=== PATIENT | male | born 1945 | race Caucasian/White ===

== ENCOUNTER → 2021-10-28 12:05 | Outpatient (CLI) | payer MEDICARE, SELFPAY ==
[2021-10-28 18:56] LABS: Add Manual Diff / Slide Review NO; Basophils Absolute Auto 100 /uL (0-100); Basophils Percent Auto 0.8 % (0-2); Eosinophils Absolute Auto 0 /uL (0-450); Eosinophils Percent Auto 0.3 % (2-4); Hemoglobin 11.8 g/dL (13.5-17.5); Lymphocytes Absolute Auto 700 /uL (1100-4500); Mean Corpuscular HGB Conc 33.9 % (30-36); Mean Corpuscular Hemoglobin 28.7 PG (26-34); Mean Corpuscular Volume 84.8 fL (80-100); Monocytes Absolute Auto 900 /uL (0-900); Monocytes Percent Auto 8.6 % (3-14); Neutrophils Absolute Auto 9300 /uL (1500-7000); Neutrophils Percent Auto 84.3 % (50-75); Platelet Count 201 X10^3/uL (150-400); Red Blood Cell Count 4.13 X10^6/uL (4.5-5.9); Red Cell Distribution Width 14.5 % (11.6-14.8)
[2021-10-28 19:03] LABS: Alanine Aminotransferase 13 IU/L (<50); Albumin 3.6 g/dL (3.5-5.0); Albumin Globulin Ratio 1.2 (1.0-2.8); Alkaline Phosphatase 116 U/L (38-126); Aspartate Aminotransferase 17 IU/L (17-59); BUN Creatinine Ratio 23.8 (6-22); Bilirubin Total 1.4 mg/dL (0.2-1.3); Blood Urea Nitrogen 30 mg/dL (9-20); Calcium 9.1 mg/dL (8.4-10.2); Carbon Dioxide 23 mmol/L (22-32); Chloride 103 mmol/L (98-107); Estimated Glomerular Filt Rate 59 mL/min (>60); Globulin 3.1 g/dL (1.7-4.1); Glucose 250 mg/dL (80-110); Potassium 4.6 mmol/L (3.4-5.1); Sodium 133 mmol/L (137-145); Total Protein 6.7 g/dL (6.3-8.2); Uric Acid 5.8 mg/dL (3.5-8.5)
[2021-10-28 19:04] LABS: HEMOLYSIS < 15 (0-50)
[2021-10-28 19:07] LABS: NT-proBNP (BNP-Adult 18+) 538 pg/mL (<450)
[2021-10-28 19:19] LABS: Hemoglobin A1C% w Est Avg Glu 8.4 % (4.0-6.0)
[2021-10-28 19:28] LABS: TSH w/ Reflex to FT4 0.55 uIU/mL (0.47-4.68)
[2021-10-28 19:48] LABS: Vitamin B12 347 pg/mL (239-931)
== END ==
PROVIDERS: PCP Physician Assistant; Visit Provider Physician Assistant
DX: I50.32 Chronic diastolic (congestive) heart failure (principal); G62.9 Polyneuropathy, unspecified; E89.0 Postprocedural hypothyroidism; I10 Essential (primary) hypertension; Z13.220 Encounter for screening for lipoid disorders; R05.9 Cough, unspecified; R06.02 Shortness of breath; Z85.51 Personal history of malignant neoplasm of bladder; E78.5 Hyperlipidemia, unspecified; G89.29 Other chronic pain; I25.10 Atherosclerotic heart disease of native coronary artery without angina pectoris; I50.30 Unspecified diastolic (congestive) heart failure; M10.9 Gout, unspecified; M54.9 Dorsalgia, unspecified; R29.6 Repeated falls
CPT/HCPCS: 80053; 82607; 83036; 83880; 84443; 84550; 85025

== ENCOUNTER 2021-12-18 16:41 | Emergency (ER) | payer MEDICARE, SELFPAY ==
[2021-12-18] VITALS (18 sets, daily range): BP systolic 131–175; BP diastolic 58–85; PULSE 52–69; RESP 12–24; TEMP 36.8; O2SAT 94–98; BMI 36.6
--- NOTE | 2021-12-18 17:03 | DI.RAD.S_ITS ---
PROCEDURE: XR CHEST 1V INDICATIONS: lethargic TECHNIQUE: One view of the chest was acquired. COMPARISON: [facility] ([place]), CR, XR CHEST 2V, 10/28/2021, 11:23. FINDINGS: Surgical changes and devices: Cardiac valvular prosthesis is visualized. Lungs and pleura: Mild diffuse interstitial prominence. Patchy bibasilar airspace opacities. No focal consolidations.acromioclavicular opacities involving both costophrenic angles may represent small bilateral pleural effusions. No pneumothorax seen. Mediastinum: Mediastinal contours appear normal. Heart size is mildly enlarged. Bones and chest wall: No suspicious bony lesions. Overlying soft tissues appear unremarkable. IMPRESSION: Borderline cardiomegaly with findings suggestive of early/mild pulmonary edema. Mild patchy bibasilar airspace opacities may represent atelectasis although early airspace disease/pneumonia may have a similar appearance. Recommend follow up chest radiograph 4-6 weeks after treatment to document resolution of findings and/or return to baseline examination. Dictated by: Buck Blevins M.D. on 12/18/2021 at 17:27 Approved by: Buck Blevins M.D. on 12/18/2021 at 17:29
[2021-12-18 17:51] LABS: Alanine Aminotransferase 19 IU/L (<50); Albumin 3.5 g/dL (3.5-5.0); Albumin Globulin Ratio 1.3 (1.0-2.8); Alkaline Phosphatase 108 U/L (38-126); Aspartate Aminotransferase 25 IU/L (17-59); BUN Creatinine Ratio 10.7 (6-22); Bilirubin Total 0.5 mg/dL (0.2-1.3); Blood Urea Nitrogen 13 mg/dL (9-20); Calcium 8.5 mg/dL (8.4-10.2); Carbon Dioxide 20 mmol/L (22-32); Chloride 102 mmol/L (98-107); Creatine Kinase 122 U/L (55-170); Estimated Glomerular Filt Rate > 60 mL/min (>60); Globulin 2.8 g/dL (1.7-4.1); Glucose 264 mg/dL (80-110); HEMOLYSIS < 15 (0-50); Potassium 3.7 mmol/L (3.4-5.1); Sodium 133 mmol/L (137-145); Total Protein 6.3 g/dL (6.3-8.2)
[2021-12-18 17:52] LABS: Add Manual Diff / Slide Review NO; Basophils Absolute Auto 100 /uL (0-100); Basophils Percent Auto 0.9 % (0-2); Eosinophils Absolute Auto 100 /uL (0-450); Eosinophils Percent Auto 1.3 % (2-4); Hematocrit 36.8 % (41-53); Hemoglobin 12.8 g/dL (13.5-17.5); Lymphocytes Absolute Auto 1800 /uL (1100-4500); Lymphocytes Percent Auto 19.3 % (25-40); Mean Corpuscular HGB Conc 34.7 % (30-36); Mean Corpuscular Hemoglobin 29.1 PG (26-34); Monocytes Absolute Auto 600 /uL (0-900); Monocytes Percent Auto 6.8 % (3-14); Neutrophils Absolute Auto 6500 /uL (1500-7000); Neutrophils Percent Auto 71.7 % (50-75); Platelet Count 172 X10^3/uL (150-400); Red Blood Cell Count 4.39 X10^6/uL (4.5-5.9); White Blood Cell Count 9.1 X10^3/uL (4.5-11.0)
[2021-12-18 18:06] LABS: CKMB % Relative Index 1.3 % (1.5-5.0); Creatine Kinase MB 1.61 ng/mL (<2.37)
[2021-12-18 18:13] LABS: Troponin I 0.241 ng/mL (0.01-0.034)
[2021-12-18 18:29] LABS: COVID19 -Nasal RAPID Negative (Negative)
[2021-12-18] MEDS: HEPARIN 5,000 UNIT/ML VIAL 5000 UNIT IV (18:37)
[2021-12-18] MEDS: HEPARIN DRIP 25,000 UNIT/500 ML IV.SOLN 20 UNIT IV (18:38)
[2021-12-18 18:43] LABS: HCO3 VBG 23 mmol/L (23-28); Oxygen Saturation VBG 58 % (70-75); PCO2 VBG 29.7 mmHg (45-50); PO2 VBG 27 mmHg (35-45); Total CO2 VBG 24 mmol/L (24-29)
[2021-12-18 18:47] LABS: D Dimer 365 ng/mL (<230)
[2021-12-18 18:48] LABS: Lactate (Lactic Acid) 1.8 mmol/L (0.7-2.1)
[2021-12-18 18:57] LABS: NT-proBNP (BNP-Adult 18+) 523 pg/mL (<450)
[2021-12-18 19:28] LABS: PTT Partial Thromboplastin Tim 28 SECONDS (26.4-36.2)
--- NOTE | 2021-12-18 19:38 | ED_ITS ---
HPI - General Adult <Carroll Brown - Last Filed: 12/23/21 00:37> General Chief complaint: Diabetic Problem Stated complaint: Lehtargic, brain fog Time Seen by Provider: 12/18/21 18:07 Source: patient, family and EMS Mode of arrival: EMS History of Present Illness HPI narrative: 76-year-old male nonsmoker with extensive medical history including prior pulmonary emboli and DVTs, diabetes, coronary artery disease with prior stents presents by air medical transport for evaluation of fatigue, feeling unwell and elevated blood sugars. He states that over the past 3-4 days he is had a significant change in his ability to tolerate exercise and becomes quite short of breath and fatigued as well as nauseated which improves with rest. He states that prior to this he was able to exercise without much difficulty. He denies any chest pain or unexplained diaphoresis. He states that he and his have been on the road for quite some time and as a consequence they have run out of his medications and he had not been taking his diabetic meds nor anticoagulants among others. He was feeling poorly and foggy and ended up at [facility], records are pending, but he was treated for diabetic emergency with extensive evaluation including but not limited to brain imaging and even lumbar puncture. He states that he was feeling much better and had found a ride back to his home out on the [place] so he left, prior to them being ready. Today based on how he was feeling he presented to the clinic out on [facility] and after evaluation was sent here at his request Related Data Home Medications Medication Instructions Recorded Confirmed gabapentin 300 mg capsule 300 mg PO DAILY 07/06/21 12/18/21 levothyroxine 200 mcg tablet 200 mcg PO DAILY 07/06/21 12/18/21 allopurinol 100 mg tablet 100 mg PO DAILY 10/12/21 12/18/21 amlodipine 5 mg tablet 5 mg PO DAILY 10/12/21 12/18/21 clopidogrel 75 mg tablet 75 mg PO DAILY 10/12/21 12/18/21 duloxetine 30 mg capsule,delayed 30 mg PO BID 10/12/21 12/18/21 release fluticasone propionate 50 1 spray intranasal DAILY 10/12/21 12/18/21 mcg/actuation nasal spray,suspension furosemide 20 mg tablet 20 mg PO DAILY 10/12/21 12/18/21 insulin NPH isoph U-100 human 100 32 unit SUBCUT QAM 10/12/21 12/18/21 unit/mL subcutaneous suspension (Humulin N NPH U-100 Insulin (isophane susp)) latanoprost 0.005 % eye drops 1 drp EYE-BOTH DAILY 10/12/21 12/18/21 omeprazole 20 mg capsule,delayed 20 mg PO DAILY 10/12/21 12/18/21 release rivaroxaban 20 mg tablet (Xarelto) 20 mg PO QPM 10/12/21 12/18/21 triamcinolone acetonide 0.1 % 1 applic topical BID 10/12/21 12/18/21 topical cream insulin NPH isoph U-100 human 100 48 unit SUBCUT BEDTIME 12/18/21 12/18/21 unit/mL subcutaneous cartridge Allergies Allergy/AdvReac Type Severity Reaction Status Date / Time Sulfa (Sulfonamide Allergy Intermediate Hives Verified 12/18/21 18:26 Antibiotics) Review of Systems <Carroll Brown DO - Last Filed: 12/23/21 00:37> Review of Systems Narrative: GENERAL: See HPI HEENT: Denies sinus pain, ear pain, sore throat, difficulty swallowing, dizziness. RESPIRATORY: See HPI CARDIOVASCULAR: Denies chest pain, palpitations, orthopnea, edema, GASTROINTESTINAL: Denies nausea, vomiting, abdominal pain, diarrhea, constipation, melena. : Denies dysuria, frequency, incontinence, hematuria, urinary retention. MUSCULOSKELETAL: denies weakness, joint pain, or bony pain SKIN: Denies rash, skin lesions, or other NEUROLOGIC: Denies weakness, headache, numbness, change in speech, confusion, seizures, incoordination. PSYCHIATRIC: No concerning psychosocial issues. 12 point review of systems is negative except for those stated above Patient History <Carroll Brown DO - Last Filed: 12/23/21 00:37> Medical History Acne Afib EDUARDO (acute kidney injury) Allergies Chicken pox Chronic back pain Coronary artery disease (~2016) Diastolic heart failure (~2016) Glaucoma (~1997) Gout (~1999) Graves disease (~1999) History of kidney cancer Hyperlipidemia (~2016) Kidney stones Measles Mumps Osteoarthritis (~2014) Peripheral neuropathy (~2017) Peroneal DVT (deep venous thrombosis) Pulmonary embolism Rubella Screening for lipid disorders Thyroid cancer Surgical History H/O thyroidectomy History of nephrectomy, right (~2005) Hx of Achilles tendon repair Family History Father Stroke Mother Stroke Sister Cancer Social History Smoking Status: Never smoker Smoking Status: Never smoker alcohol intake frequency: 0-2 drinks per day Substance Use Type: does not use Exam <Carroll Brown DO - Last Filed: 12/23/21 00:37> Narrative Exam Narrative: GENERAL: [76] year old patient appears stated age. Well-developed patient, in mild distress. HEAD: Atraumatic. Normocephalic. EYES: Pupils equal round and reactive. Extraocular motions intact. No scleral icterus. No injection or drainage. ENT: Nose without bleeding, purulent drainage. Throat without erythema, to nsillar hypertrophy or exudate. Airway patent. NECK: Trachea midline. Non tender CARDIOVASCULAR: Regular rate and rhythm without murmurs, gallops, or rubs. RESPIRATORY: Clear to auscultation. Breath sounds equal bilaterally. No wheezes, rales, or rhonchi. GASTROINTESTINAL: Abdomen soft, non-tender, nondistended. EXTREMITIES: No edema or joint tenderness. BACK: Nontender without deformity or crepitance. No flank tenderness. NEURO: AOx3. SKIN: No rash or erythema of visible areas Initial Vital Signs Initial Vital Signs: Vital Signs Temperature 98.3 F 12/18/21 16:50 Pulse Rate 67 12/18/21 16:50 Respiratory Rate 18 12/18/21 16:50 Blood Pressure 171/80 H 12/18/21 16:50 Pulse Oximetry 98 12/18/21 16:50 Oxygen Delivery Method 12/18/21 16:50 <Calos Knutson DO - Last Filed: 12/24/21 22:03> Initial Vital Signs Initial Vital Signs: Vital Signs Temperature 98.3 F 12/18/21 16:50 Pulse Rate 67 12/18/21 16:50 Respiratory Rate 18 12/18/21 16:50 Blood Pressure 171/80 H 12/18/21 16:50 Pulse Oximetry 98 12/18/21 16:50 Oxygen Delivery Method 12/18/21 16:50 <Hakan Hemphill MD - Last Filed: 12/20/21 18:04> Initial Vital Signs Initial Vital Signs: Vital Signs Temperature 98.3 F 12/18/21 16:50 Pulse Rate 67 12/18/21 16:50 Respiratory Rate 18 12/18/21 16:50 Blood Pressure 171/80 H 12/18/21 16:50 Pulse Oximetry 98 12/18/21 16:50 Oxygen Delivery Method 12/18/21 16:50 <Nena Choudhary DO - Last Filed: 12/20/21 17:00> Initial Vital Signs Initial Vital Signs: Vital Signs Temperature 98.3 F 12/18/21 16:50 Pulse Rate 67 12/18/21 16:50 Respiratory Rate 18 12/18/21 16:50 Blood Pressure 171/80 H 12/18/21 16:50 Pulse Oximetry 98 12/18/21 16:50 Oxygen Delivery Method 12/18/21 16:50 Course <Carroll Brown DO - Last Filed: 12/23/21 00:37> Orders Ordered: Discontinued Medications Aspirin (Aspirin 81 Mg Chew Tab) 324 mg PO NOW ONE Stop: 12/18/21 19:47 Last Admin: 12/18/21 20:04 Dose: 324 mg Documented By: JON Aspirin (Aspirin 81 Mg Chew Tab) 324 mg PO DAILY [facility] Atorvastatin Calcium (Atorvastatin 20 Mg Tablet) 80 mg PO NOW ONE Stop: 12/18/21 19:47 Last Admin: 12/18/21 20:04 Dose: 80 mg Documented By: JON Atorvastatin Calcium (Atorvastatin 20 Mg Tablet) 80 mg PO DAILY [facility] Heparin Sodium (Porcine) (Heparin 5,000 Unit/Ml Vial) 5,000 unit IV NOW ONE Stop: 12/18/21 18:15 Last Admin: 12/18/21 18:37 Dose: 5,000 unit Documented By: GUCCI Heparin Sodium/Dextrose (Heparin Drip) 25,000 unit in 500 mls @ 20 mls/hr IV C ONT IZABELLA; Protocol Last Titration: 12/20/21 14:44 Dose: 0 units/hr, 0 mls/hr Documented By: Admin: 12/19/21 18:27 Dose: 1,150 units/hr, 23 mls/hr Documented By: Titration: 12/19/21 18:20 Dose: 1,150 units/hr, 23 mls/hr Documented By: Titration: 12/19/21 15:04 Dose: 1,150 units/hr, 23 mls/hr Documented By: Titration: 12/19/21 09:02 Dose: 1,100 units/hr, 22 mls/hr Documented By: Titration: 12/19/21 00:30 Dose: 1,050 units/hr, 21 mls/hr Documented By: Admin: 12/18/21 18:38 Dose: 1,000 units/hr, 20 mls/hr Documented By: GUCCI Insulin Human Lispro (Insulin Lispro 100 Unit/Ml 3ml Vial) 0 unit SUBCUT [facility]; Protocol Last Admin: 12/20/21 13:59 Dose: 5 unit Documented By: SHANDA Co-signed By: AT Admin: 12/20/21 10:36 Dose: 2 unit Documented By: SHANDA Co-signed By: RAFAELA Admin: 12/19/21 22:37 Dose: 2 unit Documented By: YUE Co-signed By: AT Admin: 12/19/21 17:34 Dose: 4 unit Documented By: SHANDA Co-signed By: TRACY Metoprolol Tartrate (Metoprolol Ir 25 Mg Tablet) 25 mg PO NOW ONE Stop: 12/18/21 19:47 Last Admin: 12/18/21 20:04 Dose: 25 mg Documented By: JON Metoprolol Tartrate (Metoprolol Ir 25 Mg Tablet) 25 mg PO BID [facility] Last Admin: 12/20/21 10:53 Dose: 25 mg Documented By: Admin: 12/19/21 22:37 Dose: Not Given Documented By: Admin: 12/19/21 22:36 Dose: 25 mg Documented By: YUE Consultations Consultation #1: Patient alarm just noted a run of 9 beats of VT Vital Signs Vital signs: Vital Signs - 8 hr 12/20/21 10:55 12/20/21 10:29 12/20/21 10:29 Temperature Pulse Rate 90 54 L Respiratory Rate 22 Blood Pressure 181/80 H 163/77 H Pulse Oximetry 98 Oxygen Delivery Method 12/20/21 10:30 12/20/21 11:00 12/20/21 11:30 Temperature Pulse Rate 55 L 60 57 L Respiratory Rate 16 17 14 Blood Pressure Pulse Oximetry 98 98 98 Oxygen Delivery Method 12/20/21 12:00 12/20/21 12:30 12/20/21 14:01 Temperature 98.4 F Pulse Rate 51 L 48 L 50 L Respiratory Rate 19 22 22 Blood Pressure 163/77 H Pulse Oximetry 95 98 97 Oxygen Delivery Method Room Air Room Air 12/20/21 13:00 12/20/21 13:30 Temperature Pulse Rate 51 L 66 Respiratory Rate 20 19 Blood Pressure Pulse Oximetry 98 97 Oxygen Delivery Method <Calos Knutson DO - Last Filed: 12/24/21 22:03> Orders Ordered: Discontinued Medications Aspirin (Aspirin 81 Mg Chew Tab) 324 mg PO NOW ONE Stop: 12/18/21 19:47 Last Admin: 12/18/21 20:04 Dose: 324 mg Documented By: JON Aspirin (Aspirin 81 Mg Chew Tab) 324 mg PO DAILY [facility] Atorvastatin Calcium (Atorvastatin 20 Mg Tablet) 80 mg PO NOW ONE Stop: 12/18/21 19:47 Last Admin: 12/18/21 20:04 Dose: 80 mg Documented By: JON Atorvastatin Calcium (Atorvastatin 20 Mg Tablet) 80 mg PO DAILY [facility] Heparin Sodium (Porcine) (Heparin 5,000 Unit/Ml Vial) 5,000 unit IV NOW ONE Stop: 12/18/21 18:15 Last Admin: 12/18/21 18:37 Dose: 5,000 unit Documented By: GUCCI Heparin Sodium/Dextrose (Heparin Drip) 25,000 unit in 500 mls @ 20 mls/hr IV CONT IZABELLA; Protocol Last Titration: 12/20/21 14:44 Dose: 0 units/hr, 0 mls/hr Documented By: Admin: 12/19/21 18:27 Dose: 1,150 units/hr, 23 mls/hr Documented By: Titration: 12/19/21 18:20 Dose: 1,150 units/hr, 23 mls/hr Documented By: Titration: 12/19/21 15:04 Dose: 1,150 units/hr, 23 mls/hr Documented By: Titration: 12/19/21 09:02 Dose: 1,100 units/hr, 22 mls/hr Documented By: Titration: 12/19/21 00:30 Dose: 1,050 units/hr, 21 mls/hr Documented By: Admin: 12/18/21 18:38 Dose: 1,000 units/hr, 20 mls/hr Documented By: GUCCI Insulin Human Lispro (Insulin Lispro 100 Unit/Ml 3ml Vial) 0 unit SUBCUT ACHS [facility]; Protocol Last Admin: 12/20/21 13:59 Dose: 5 unit Documented By: SHANDA Co-signed By: AT Admin: 12/20/21 10:36 Dose: 2 unit Documented By: SHANDA Co-signed By: RAFAELA Admin: 12/19/21 22:37 Dose: 2 unit Documented By: YUE Co-signed By: AT Admin: 12/19/21 17:34 Dose: 4 unit Documented By: SHANDA Co-signed By: TRACY Metoprolol Tartrate (Metoprolol Ir 25 Mg Tablet) 25 mg PO NOW ONE Stop: 12/18/21 19:47 Last Admin: 12/18/21 20:04 Dose: 25 mg Documented By: JON Metoprolol Tartrate (Metoprolol Ir 25 Mg Tablet) 25 mg PO BID [facility] Last Admin: 12/20/21 10:53 Dose: 25 mg Documented By: Admin: 12/19/21 22:37 Dose: Not Given Documented By: Admin: 12/19/21 22:36 Dose: 25 mg Documented By: YUE Consultations Consultation #2: Dr. Leda Reagan, cardiology [facility]. Recommends continuing with current course of therapy. Patient unlikely to receive a bed in the next 48 hours but they are happy to see patient. If his enzymes normalize in that time frame he may follow up outpatient for Cardiology treatment. Time: 11:15 Vital Signs Vital signs: Vital Signs - 8 hr 12/20/21 10:55 12/20/21 10:29 12/20/21 10:29 Temperature Pulse Rate 90 54 L Respiratory Rate 22 Blood Pressure 181/80 H 163/77 H Pulse Oximetry 98 Oxygen Delivery Method 12/20/21 10:30 12/20/21 11:00 12/20/21 11:30 Temperature Pulse Rate 55 L 60 57 L Respiratory Rate 16 17 14 Blood Pressure Pulse Oximetry 98 98 98 Oxygen Delivery Method 12/20/21 12:00 12/20/21 12:30 12/20/21 14:01 Temperature 98.4 F Pulse Rate 51 L 48 L 50 L Respiratory Rate 19 22 22 Blood Pressure 163/77 H Pulse Oximetry 95 98 97 Oxygen Delivery Method Room Air Room Air 12/20/21 13:00 12/20/21 13:30 Temperature Pulse Rate 51 L 66 Respiratory Rate 20 19 Blood Pressure Pulse Oximetry 98 97 Oxygen Delivery Method <Hakan Hemphill MD - Last Filed: 12/20/21 18:04> Course Course Narrative: December 19, 2021 at 6:00 p.m.. Sign out from Dr. Knutson, patient on waiting list for transfer. Is stable with non-STEMI. On heparin drip. Troponin is trending downward. Not in DKA. No EKG changes. Echocardiogram in the morning. Daily meds have been ordered. The patient understands need for transfer. Cardiology from [facility] has been contacted and awaiting for bed December 20, 2021 at 7:00 a.m.. Sign out to Dr. Choudhary, patient still waiting for bed assignment. On waiting list. Has been stable. Daily meds are ordered. Patient on heparin drip. No acute EKG changes. Patient not in DKA. Echocardiogram has been ordered for today. Patient and aware for being on wait list Orders Ordered: Discontinued Medications Aspirin (Aspirin 81 Mg Chew Tab) 324 mg PO NOW ONE Stop: 12/18/21 19:47 Last Admin: 12/18/21 20:04 Dose: 324 mg Documented By: JON Aspirin (Aspirin 81 Mg Chew Tab) 324 mg PO DAILY [facility] Atorvastatin Calcium (Atorvastatin 20 Mg Tablet) 80 mg PO NOW ONE Stop: 12/18/21 19:47 Last Admin: 12/18/21 20:04 Dose: 80 mg Documented By: JON Atorvastatin Calcium (Atorvastatin 20 Mg Tablet) 80 mg PO DAILY [facility] Heparin Sodium (Porcine) (Heparin 5,000 Unit/Ml Vial) 5,000 unit IV NOW ONE Stop: 12/18/21 18:15 Last Admin: 12/18/21 18:37 Dose: 5,000 unit Documented By: GUCCI Heparin Sodium/Dextrose (Heparin Drip) 25,000 unit in 500 mls @ 20 mls/hr IV CONT IZABELLA; Protocol Last Titration: 12/20/21 14:44 Dose: 0 units/hr, 0 mls/hr Documented By: Admin: 12/19/21 18:27 Dose: 1,150 units/hr, 23 mls/hr Documented By: Titration: 12/19/21 18:20 Dose: 1,150 units/hr, 23 mls/hr Documented By: Titration: 12/19/21 15:04 Dose: 1,150 units/hr, 23 mls/hr Documented By: Titration: 12/19/21 09:02 Dose: 1,100 units/hr, 22 mls/hr Documented By: Titration: 12/19/21 00:30 Dose: 1,050 units/hr, 21 mls/hr Documented By: Admin: 12/18/21 18:38 Dose: 1,000 units/hr, 20 mls/hr Documented By: GUCCI Insulin Human Lispro (Insulin Lispro 100 Unit/Ml 3ml Vial) 0 unit SUBCUT ACHS [facility]; Protocol Last Admin: 12/20/21 13:59 Dose: 5 unit Documented By: SHANDA Co-signed By: AT Admin: 12/20/21 10:36 Dose: 2 unit Documented By: SHANDA Co-signed By: RAFAELA Admin: 12/19/21 22:37 Dose: 2 unit Documented By: YUE Co-signed By: AT Admin: 12/19/21 17:34 Dose: 4 unit Documented By: SHANDA Co-signed By: TRACY Metoprolol Tartrate (Metoprolol Ir 25 Mg Tablet) 25 mg PO NOW ONE Stop: 12/18/21 19:47 Last Admin: 12/18/21 20:04 Dose: 25 mg Documented By: JON Metoprolol Tartrate (Metoprolol Ir 25 Mg Tablet) 25 mg PO BID [facility] Last Admin: 12/20/21 10:53 Dose: 25 mg Documented By: Admin: 12/19/21 22:37 Dose: Not Given Documented By: Admin: 12/19/21 22:36 Dose: 25 mg Documented By: YUE Reevaluation(s) Reevaluation #1: Introduced myself to patient. December 19, 2021 at 8:00 p.m.. Patient in no distress and understands need for transfer. No active chest pain. at bedside. Time: 20:00 Vital Signs Vital signs: Vital Signs - 8 hr 12/20/21 10:55 12/20/21 10:29 12/20/21 10:29 Temperature Pulse Rate 90 54 L Respiratory Rate 22 Blood Pressure 181/80 H 163/77 H Pulse Oximetry 98 Oxygen Delivery Method 12/20/21 10:30 12/20/21 11:00 12/20/21 11:30 Temperature Pulse Rate 55 L 60 57 L Respiratory Rate 16 17 14 Blood Pressure Pulse Oximetry 98 98 98 Oxygen Delivery Method 12/20/21 12:00 12/20/21 12:30 12/20/21 14:01 Temperature 98.4 F Pulse Rate 51 L 48 L 50 L Respiratory Rate 19 22 22 Blood Pressure 163/77 H Pulse Oximetry 95 98 97 Oxygen Delivery Method Room Air Room Air 12/20/21 13:00 12/20/21 13:30 Temperature Pulse Rate 51 L 66 Respiratory Rate 20 19 Blood Pressure Pulse Oximetry 98 97 Oxygen Delivery Method <Nena Choudhary DO - Last Filed: 12/20/21 17:00> Orders Ordered: Discontinued Medications Aspirin (Aspirin 81 Mg Chew Tab) 324 mg PO NOW ONE Stop: 12/18/21 19:47 Last Admin: 12/18/21 20:04 Dose: 324 mg Documented By: JON Aspirin (Aspirin 81 Mg Chew Tab) 324 mg PO DAILY [facility] Atorvastatin Calcium (Atorvastatin 20 Mg Tablet) 80 mg PO NOW ONE Stop: 12/18/21 19:47 Last Admin: 12/18/21 20:04 Dose: 80 mg Documented By: JON Atorvastatin Calcium (Atorvastatin 20 Mg Tablet) 80 mg PO DAILY [facility] Heparin Sodium (Porcine) (Heparin 5,000 Unit/Ml Vial) 5,000 unit IV NOW ONE Stop: 12/18/21 18:15 Last Admin: 12/18/21 18:37 Dose: 5,000 unit Documented By: GUCCI Heparin Sodium/Dextrose (Heparin Drip) 25,000 unit in 500 mls @ 20 mls/hr IV CONT IZABELLA; Protocol Last Titration: 12/20/21 14:44 Dose: 0 units/hr, 0 mls/hr Documented By: Admin: 12/19/21 18:27 Dose: 1,150 units/hr, 23 mls/hr Documented By: Titration: 12/19/21 18:20 Dose: 1,150 units/hr, 23 mls/hr Documented By: Titration: 12/19/21 15:04 Dose: 1,150 units/hr, 23 mls/hr Documented By: Titration: 12/19/21 09:02 Dose: 1,100 units/hr, 22 mls/hr Documented By: Titration: 12/19/21 00:30 Dose: 1,050 units/hr, 21 mls/hr Documented By: Admin: 12/18/21 18:38 Dose: 1,000 units/hr, 20 mls/hr Documented By: GUCCI Insulin Human Lispro (Insulin Lispro 100 Unit/Ml 3ml Vial) 0 unit SUBCUT ACHS [facility]; Protocol Last Admin: 12/20/21 13:59 Dose: 5 unit Documented By: SHANDA Co-signed By: AT Admin: 12/20/21 10:36 Dose: 2 unit Documented By: SHANDA Co-signed By: RAFAELA Admin: 12/19/21 22:37 Dose: 2 unit Documented By: YUE Co-signed By: AT Admin: 12/19/21 17:34 Dose: 4 unit Documented By: SHANDA Co-signed By: TRACY Metoprolol Tartrate (Metoprolol Ir 25 Mg Tablet) 25 mg PO NOW ONE Stop: 12/18/21 19:47 Last Admin: 12/18/21 20:04 Dose: 25 mg Documented By: JON Metoprolol Tartrate (Metoprolol Ir 25 Mg Tablet) 25 mg PO BID [facility] Last Admin: 12/20/21 10:53 Dose: 25 mg Documented By: Admin: 12/19/21 22:37 Dose: Not Given Documented By: Admin: 12/19/21 22:36 Dose: 25 mg Documented By: YUE Vital Signs Vital signs: Vital Signs - 8 hr 12/20/21 10:55 12/20/21 10:29 12/20/21 10:29 Temperature Pulse Rate 90 54 L Respiratory Rate 22 Blood Pressure 181/80 H 163/77 H Pulse Oximetry 98 Oxygen Delivery Method 12/20/21 10:30 12/20/21 11:00 12/20/21 11:30 Temperature Pulse Rate 55 L 60 57 L Respiratory Rate 16 17 14 Blood Pressure Pulse Oximetry 98 98 98 Oxygen Delivery Method 12/20/21 12:00 12/20/21 12:30 12/20/21 14:01 Temperature 98.4 F Pulse Rate 51 L 48 L 50 L Respiratory Rate 19 22 22 Blood Pressure 163/77 H Pulse Oximetry 95 98 97 Oxygen Delivery Method Room Air Room Air 12/20/21 13:00 12/20/21 13:30 Temperature Pulse Rate 51 L 66 Respiratory Rate 20 19 Blood Pressure Pulse Oximetry 98 97 Oxygen Delivery Method Medical Decision Making <Carroll Kevin, DO - Last Filed: 12/23/21 00:37> Lab Data Result diagrams: 12/20/21 08:30 12/20/21 08:30 Labs: Lab Results 12/18/21 12/18/21 12/18/21 Range/Units 17:20 17:20 17:20 WBC 9.1 (4.5-11.0) X10^3/uL RBC 4.39 L (4.5-5.9) X10^6/uL Hgb 12.8 L (13.5-17.5) g/dL Hct 36.8 L (41-53) % MCV 84.0 (80-100) fL MCH 29.1 (26-34) PG MCHC 34.7 (30-36) % RDW 16.0 H (11.6-14.8) % Plt Count 172 (150-400) X10^3/uL Neut % (Auto) 71.7 (50-75) % Lymph % (Auto) 19.3 L (25-40) % [place] % (Auto) 6.8 (3-14) % Eos % (Auto) 1.3 L (2-4) % Baso % (Auto) 0.9 (0-2) % Neut # (Auto) 6500 (3092-5235) /uL Lymph # (Auto) 1800 (0683-6214) /uL [place] # (Auto) 600 (0-900) /uL Eos # (Auto) 100 (0-450) /uL Baso # (Auto) 100 (0-100) /uL APTT (26.4-36.2) SECONDS D-Dimer (<230) ng/mL VBG pH (7.33-7.43) VBG pCO2 (45-50) mmHg VBG pO2 (35-45) mmHg VBG HCO3 (23-28) mmol/L VBG Total CO2 (24-29) mmol/L VBG O2 Saturation (70-75) % VBG Base Excess (0-4) mmol/L Sodium 133 L (137-145) mmol/L Potassium 3.7 (3.4-5.1) mmol/L Chloride 102 (98-107) mmol/L Carbon Dioxide 20 L (22-32) mmol/L BUN 13 (9-20) mg/dL Creatinine 1.21 (0.66-1.25) mg/dL Estimated GFR > 60 (>60) mL/min BUN/Creatinine Ratio 10.7 (6-22) Glucose 264 H (80-110) mg/dL Lactate 1.8 (0.7-2.1) mmol/L Calcium 8.5 (8.4-10.2) mg/dL Total Bilirubin 0.5 (0.2-1.3) mg/dL AST 25 (17-59) IU/L ALT 19 (<50) IU/L Alkaline Phosphatase 108 (38-126) U/L Total Creatine Kinase 122 (55-170) U/L CK-MB (CK-2) 1.61 (<2.37) ng/mL CK-MB (CK-2) Rel Index 1.3 L (1.5-5.0) % Troponin I 0.241 H* (0.01-0.034) ng/mL NT-Pro-B Natriuret Pep (<450) pg/mL Total Protein 6.3 (6.3-8.2) g/dL Albumin 3.5 (3.5-5.0) g/dL Globulin 2.8 (1.7-4.1) g/dL Albumin/Globulin Ratio 1.3 (1.0-2.8) Urine RBC (0-5/HPF) Urine WBC (0-5/HPF) Ur Squamous Epith Cells (0-5/HPF) Ur Transition Epith Cell (0-5/HPF) Ur Renal Epithelial Cell (0-1/HPF) Amorphous Sediment Urine Bacteria (None) Hyaline Casts (None) Granular Casts (None) Ur Culture Indicated? Ketones 0.20 (<0.27) mmol/L SARS-CoV-2 (PCR) (Negative) 12/18/21 12/18/21 12/18/21 Range/Units 17:20 17:20 17:20 WBC (4.5-11.0) X10^3/uL RBC (4.5-5.9) X10^6/uL Hgb (13.5-17.5) g/dL Hct (41-53) % MCV (80-100) fL MCH (26-34) PG MCHC (30-36) % RDW (11.6-14.8) % Plt Count (150-400) X10^3/uL Neut % (Auto) (50-75) % Lymph % (Auto) (25-40) % [place] % (Auto) (3-14) % Eos % (Auto) (2-4) % Baso % (Auto) (0-2) % Neut # (Auto) (2521-2249) /uL Lymph # (Auto) (4173-4353) /uL [place] # (Auto) (0-900) /uL Eos # (Auto) (0-450) /uL Baso # (Auto) (0-100) /uL APTT 28 (26.4-36.2) SECONDS D-Dimer 365 H (<230) ng/mL VBG pH (7.33-7.43) VBG pCO2 (45-50) mmHg VBG pO2 (35-45) mmHg VBG HCO3 (23-28) mmol/L VBG Total CO2 (24-29) mmol/L VBG O2 Saturation (70-75) % VBG Base Excess (0-4) mmol/L Sodium (137-145) mmol/L Potassium (3.4-5.1) mmol/L Chloride (98-107) mmol/L Carbon Dioxide (22-32) mmol/L BUN (9-20) mg/dL Creatinine (0.66-1.25) mg/dL Estimated GFR (>60) mL/min BUN/Creatinine Ratio (6-22) Glucose (80-110) mg/dL Lactate (0.7-2.1) mmol/L Calcium (8.4-10.2) mg/dL Total Bilirubin (0.2-1.3) mg/dL AST (17-59) IU/L ALT (<50) IU/L Alkaline Phosphatase (38-126) U/L Total Creatine Kinase (55-170) U/L CK-MB (CK-2) (<2.37) ng/mL CK-MB (CK-2) Rel Index (1.5-5.0) % Troponin I (0.01-0.034) ng/mL NT-Pro-B Natriuret Pep 523 H (<450) pg/mL Total Protein (6.3-8.2) g/dL Albumin (3.5-5.0) g/dL Globulin (1.7-4.1) g/dL Albumin/Globulin Ratio (1.0-2.8) Urine RBC (0-5/HPF) Urine WBC (0-5/HPF) Ur Squamous Epith Cells (0-5/HPF) Ur Transition Epith Cell (0-5/HPF) Ur Renal Epithelial Cell (0-1/HPF) Amorphous Sediment Urine Bacteria (None) Hyaline Casts (None) Granular Casts (None) Ur Culture Indicated? Ketones (<0.27) mmol/L SARS-CoV-2 (PCR) (Negative) 12/18/21 12/18/21 12/18/21 Range/Units 17:55 18:35 19:40 WBC (4.5-11.0) X10^3/uL RBC (4.5-5.9) X10^6/uL Hgb (13.5-17.5) g/dL Hct (41-53) % MCV (80-100) fL MCH (26-34) PG MCHC (30-36) % RDW (11.6-14.8) % Plt Count (150-400) X10^3/uL Neut % (Auto) (50-75) % Lymph % (Auto) (25-40) % [place] % (Auto) (3-14) % Eos % (Auto) (2-4) % Baso % (Auto) (0-2) % Neut # (Auto) (7064-2893) /uL Lymph # (Auto) (2726-5284) /uL [place] # (Auto) (0-900) /uL Eos # (Auto) (0-450) /uL Baso # (Auto) (0-100) /uL APTT (26.4-36.2) SECONDS D-Dimer (<230) ng/mL VBG pH 7.50 H (7.33-7.43) VBG pCO2 29.7 L (45-50) mmHg VBG pO2 27 L (35-45) mmHg VBG HCO3 23 (23-28) mmol/L VBG Total CO2 24 (24-29) mmol/L VBG O2 Saturation 58 L (70-75) % VBG Base Excess 0.0 (0-4) mmol/L Sodium (137-145) mmol/L Potassium (3.4-5.1) mmol/L Chloride (98-107) mmol/L Carbon Dioxide (22-32) mmol/L BUN (9-20) mg/dL Creatinine (0.66-1.25) mg/dL Estimated GFR (>60) mL/min BUN/Creatinine Ratio (6-22) Glucose (80-110) mg/dL Lactate (0.7-2.1) mmol/L Calcium (8.4-10.2) mg/dL Total Bilirubin (0.2-1.3) mg/dL AST (17-59) IU/L ALT (<50) IU/L Alkaline Phosphatase (38-126) U/L Total Creatine Kinase (55-170) U/L CK-MB (CK-2) (<2.37) ng/mL CK-MB (CK-2) Rel Index (1.5-5.0) % Troponin I (0.01-0.034) ng/mL NT-Pro-B Natriuret Pep (<450) pg/mL Total Protein (6.3-8.2) g/dL Albumin (3.5-5.0) g/dL Globulin (1.7-4.1) g/dL Albumin/Globulin Ratio (1.0-2.8) Urine RBC 1-5/hpf (0-5/HPF) Urine WBC 1-5/hpf (0-5/HPF) Ur Squamous Epith Cells 1-5 /hpf (0-5/HPF) Ur Transition Epith Cell 0-1/hpf (0-5/HPF) Ur Renal Epithelial Cell 0-1/hpf (0-1/HPF) Amorphous Sediment 1+ Urine Bacteria Occasional (0-1) (None) Hyaline Casts 5-10/lpf (None) Granular Casts 1-5/lpf (None) Ur Culture Indicated? Cult not indicated Ketones (<0.27) mmol/L SARS-CoV-2 (PCR) Negative (Negative) 12/18/21 12/19/21 12/19/21 Range/Units 20:35 00:20 03:51 WBC (4.5-11.0) X10^3/uL RBC (4.5-5.9) X10^6/uL Hgb (13.5-17.5) g/dL Hct (41-53) % MCV (80-100) fL MCH (26-34) PG MCHC (30-36) % RDW (11.6-14.8) % Plt Count (150-400) X10^3/uL Neut % (Auto) (50-75) % Lymph % (Auto) (25-40) % [place] % (Auto) (3-14) % Eos % (Auto) (2-4) % Baso % (Auto) (0-2) % Neut # (Auto) (2725-9772) /uL Lymph # (Auto) (5405-5814) /uL [place] # (Auto) (0-900) /uL Eos # (Auto) (0-450) /uL Baso # (Auto) (0-100) /uL APTT 47 H D (26.4-36.2) SECONDS D-Dimer (<230) ng/mL VBG pH (7.33-7.43) VBG pCO2 (45-50) mmHg VBG pO2 (35-45) mmHg VBG HCO3 (23-28) mmol/L VBG Total CO2 (24-29) mmol/L VBG O2 Saturation (70-75) % VBG Base Excess (0-4) mmol/L Sodium (137-145) mmol/L Potassium (3.4-5.1) mmol/L Chloride (98-107) mmol/L Carbon Dioxide (22-32) mmol/L BUN (9-20) mg/dL Creatinine (0.66-1.25) mg/dL Estimated GFR (>60) mL/min BUN/Creatinine Ratio (6-22) Glucose (80-110) mg/dL Lactate (0.7-2.1) mmol/L Calcium (8.4-10.2) mg/dL Total Bilirubin (0.2-1.3) mg/dL AST (17-59) IU/L ALT (<50) IU/L Alkaline Phosphatase (38-126) U/L Total Creatine Kinase 109 119 (55-170) U/L CK-MB (CK-2) 1.45 1.55 (<2.37) ng/mL CK-MB (CK-2) Rel Index 1.3 L 1.3 L (1.5-5.0) % Troponin I 0.227 H* 0.247 H* (0.01-0.034) ng/mL NT-Pro-B Natriuret Pep (<450) pg/mL Total Protein (6.3-8.2) g/dL Albumin (3.5-5.0) g/dL Globulin (1.7-4.1) g/dL Albumin/Globulin Ratio (1.0-2.8) Urine RBC (0-5/HPF) Urine WBC (0-5/HPF) Ur Squamous Epith Cells (0-5/HPF) Ur Transition Epith Cell (0-5/HPF) Ur Renal Epithelial Cell (0-1/HPF) Amorphous Sediment Urine Bacteria (None) Hyaline Casts (None) Granular Casts (None) Ur Culture Indicated? Ketones (<0.27) mmol/L SARS-CoV-2 (PCR) (Negative) 12/19/21 12/19/21 12/19/21 Range/Units 06:15 09:55 09:55 WBC (4.5-11.0) X10^3/uL RBC (4.5-5.9) X10^6/uL Hgb 11.7 L (13.5-17.5) g/dL Hct 33.5 L (41-53) % MCV (80-100) fL MCH (26-34) PG MCHC (30-36) % RDW (11.6-14.8) % Plt Count (150-400) X10^3/uL Neut % (Auto) (50-75) % Lymph % (Auto) (25-40) % [place] % (Auto) (3-14) % Eos % (Auto) (2-4) % Baso % (Auto) (0-2) % Neut # (Auto) (1074-7476) /uL Lymph # (Auto) (8118-5062) /uL [place] # (Auto) (0-900) /uL Eos # (Auto) (0-450) /uL Baso # (Auto) (0-100) /uL APTT 47 H (26.4-36.2) SECONDS D-Dimer (<230) ng/mL VBG pH (7.33-7.43) VBG pCO2 (45-50) mmHg VBG pO2 (35-45) mmHg VBG HCO3 (23-28) mmol/L VBG Total CO2 (24-29) mmol/L VBG O2 Saturation (70-75) % VBG Base Excess (0-4) mmol/L Sodium 134 L (137-145) mmol/L Potassium 3.9 (3.4-5.1) mmol/L Chloride 103 (98-107) mmol/L Carbon Dioxide 23 (22-32) mmol/L BUN 13 (9-20) mg/dL Creatinine 1.27 H (0.66-1.25) mg/dL Estimated GFR 59 L (>60) mL/min BUN/Creatinine Ratio 10.2 (6-22) Glucose 282 H (80-110) mg/dL Lactate (0.7-2.1) mmol/L Calcium 8.0 L (8.4-10.2) mg/dL Total Bilirubin (0.2-1.3) mg/dL AST (17-59) IU/L ALT (<50) IU/L Alkaline Phosphatase (38-126) U/L Total Creatine Kinase (55-170) U/L CK-MB (CK-2) (<2.37) ng/mL CK-MB (CK-2) Rel Index (1.5-5.0) % Troponin I 0.185 H* (0.01-0.034) ng/mL NT-Pro-B Natriuret Pep (<450) pg/mL Total Protein (6.3-8.2) g/dL Albumin (3.5-5.0) g/dL Globulin (1.7-4.1) g/dL Albumin/Globulin Ratio (1.0-2.8) Urine RBC (0-5/HPF) Urine WBC (0-5/HPF) Ur Squamous Epith Cells (0-5/HPF) Ur Transition Epith Cell (0-5/HPF) Ur Renal Epithelial Cell (0-1/HPF) Amorphous Sediment Urine Bacteria (None) Hyaline Casts (None) Granular Casts (None) Ur Culture Indicated? Ketones (<0.27) mmol/L SARS-CoV-2 (PCR) (Negative) 12/19/21 12/19/21 12/19/21 Range/Units 13:15 19:15 19:47 WBC (4.5-11.0) X10^3/uL RBC (4.5-5.9) X10^6/uL Hgb (13.5-17.5) g/dL Hct (41-53) % MCV (80-100) fL MCH (26-34) PG MCHC (30-36) % RDW (11.6-14.8) % Plt Count (150-400) X10^3/uL Neut % (Auto) (50-75) % Lymph % (Auto) (25-40) % [place] % (Auto) (3-14) % Eos % (Auto) (2-4) % Baso % (Auto) (0-2) % Neut # (Auto) (0968-6862) /uL Lymph # (Auto) (2605-9313) /uL [place] # (Auto) (0-900) /uL Eos # (Auto) (0-450) /uL Baso # (Auto) (0-100) /uL APTT 46 H 42 H (26.4-36.2) SECONDS D-Dimer (<230) ng/mL VBG pH (7.33-7.43) VBG pCO2 (45-50) mmHg VBG pO2 (35-45) mmHg VBG HCO3 (23-28) mmol/L VBG Total CO2 (24-29) mmol/L VBG O2 Saturation (70-75) % VBG Base Excess (0-4) mmol/L Sodium (137-145) mmol/L Potassium (3.4-5.1) mmol/L Chloride (98-107) mmol/L Carbon Dioxide (22-32) mmol/L BUN (9-20) mg/dL Creatinine (0.66-1.25) mg/dL Estimated GFR (>60) mL/min BUN/Creatinine Ratio (6-22) Glucose (80-110) mg/dL Lactate (0.7-2.1) mmol/L Calcium (8.4-10.2) mg/dL Total Bilirubin (0.2-1.3) mg/dL AST (17-59) IU/L ALT (<50) IU/L Alkaline Phosphatase (38-126) U/L Total Creatine Kinase (55-170) U/L CK-MB (CK-2) (<2.37) ng/mL CK-MB (CK-2) Rel Index (1.5-5.0) % Troponin I 0.173 H* (0.01-0.034) ng/mL NT-Pro-B Natriuret Pep (<450) pg/mL Total Protein (6.3-8.2) g/dL Albumin (3.5-5.0) g/dL Globulin (1.7-4.1) g/dL Albumin/Globulin Ratio (1.0-2.8) Urine RBC (0-5/HPF) Urine WBC (0-5/HPF) Ur Squamous Epith Cells (0-5/HPF) Ur Transition Epith Cell (0-5/HPF) Ur Renal Epithelial Cell (0-1/HPF) Amorphous Sediment Urine Bacteria (None) Hyaline Casts (None) Granular Casts (None) Ur Culture Indicated? Ketones (<0.27) mmol/L SARS-CoV-2 (PCR) (Negative) 12/20/21 12/20/21 12/20/21 Range/Units 08:30 08:30 09:05 WBC 8.1 (4.5-11.0) X10^3/uL RBC 4.61 (4.5-5.9) X10^6/uL Hgb 13.4 L (13.5-17.5) g/dL Hct 39.1 L (41-53) % MCV 84.8 (80-100) fL MCH 29.1 (26-34) PG MCHC 34.3 (30-36) % RDW 15.6 H (11.6-14.8) % Plt Count 168 (150-400) X10^3/uL Neut % (Auto) 68.8 (50-75) % Lymph % (Auto) 19.3 L (25-40) % [place] % (Auto) 7.4 (3-14) % Eos % (Auto) 3.7 (2-4) % Baso % (Auto) 0.8 (0-2) % Neut # (Auto) 5600 (9633-7202) /uL Lymph # (Auto) 1600 (4783-6660) /uL [place] # (Auto) 600 (0-900) /uL Eos # (Auto) 300 (0-450) /uL Baso # (Auto) 100 (0-100) /uL APTT 51 H D (26.4-36.2) SECONDS D-Dimer (<230) ng/mL VBG pH (7.33-7.43) VBG pCO2 (45-50) mmHg VBG pO2 (35-45) mmHg VBG HCO3 (23-28) mmol/L VBG Total CO2 (24-29) mmol/L VBG O2 Saturation (70-75) % VBG Base Excess (0-4) mmol/L Sodium 135 L (137-145) mmol/L Potassium 4.3 (3.4-5.1) mmol/L Chloride 104 (98-107) mmol/L Carbon Dioxide 24 (22-32) mmol/L BUN 12 (9-20) mg/dL Creatinine 1.18 (0.66-1.25) mg/dL Estimated GFR > 60 (>60) mL/min BUN/Creatinine Ratio 10.2 (6-22) Glucose 239 H (80-110) mg/dL Lactate (0.7-2.1) mmol/L Calcium 8.5 (8.4-10.2) mg/dL Total Bilirubin 1.1 (0.2-1.3) mg/dL AST 46 (17-59) IU/L ALT 26 (<50) IU/L Alkaline Phosphatase 113 (38-126) U/L Total Creatine Kinase (55-170) U/L CK-MB (CK-2) (<2.37) ng/mL CK-MB (CK-2) Rel Index (1.5-5.0) % Troponin I (0.01-0.034) ng/mL NT-Pro-B Natriuret Pep (<450) pg/mL Total Protein 7.4 (6.3-8.2) g/dL Albumin 4.0 (3.5-5.0) g/dL Globulin 3.4 (1.7-4.1) g/dL Albumin/Globulin Ratio 1.2 (1.0-2.8) Urine RBC (0-5/HPF) Urine WBC (0-5/HPF) Ur Squamous Epith Cells (0-5/HPF) Ur Transition Epith Cell (0-5/HPF) Ur Renal Epithelial Cell (0-1/HPF) Amorphous Sediment Urine Bacteria (None) Hyaline Casts (None) Granular Casts (None) Ur Culture Indicated? Ketones (<0.27) mmol/L SARS-CoV-2 (PCR) (Negative) Point of Care Testing Glucose POC 403 Urine Dip Bedside Urine Glucose 1000 mg/dl Bedside Urine Bilirubin - Negative Bedside Urine Ketone - Negative Urine Specific [place] 1.030 Bedside Urine Occult Blood + Bedside Urine pH 5.5 Bedside Urine Protein +++ 300 Bedside Urine Urobilinogen - Negative Bedside Urine Nitrite - Negative Bedside Urine Leukocytes - Negative Esterase Point of care testing: Point of Care Testing Glucose POC 403 Urine Dip Bedside Urine Glucose 1000 mg/dl Bedside Urine Bilirubin - Negative Bedside Urine Ketone - Negative Urine Specific [place] 1.030 Bedside Urine Occult Blood + Bedside Urine pH 5.5 Bedside Urine Protein +++ 300 Bedside Urine Urobilinogen - Negative Bedside Urine Nitrite - Negative Bedside Urine Leukocytes - Negative Esterase Imaging Data Chest x-ray: Radiologist's Impression: [address] [id number] XRay Report Signed Patient: Ted Baldwin MR#: [id number] : 1945 Acct:[id number] Age/Sex: 76 / M Date of Service: 12/18/21 Loc: ED Accession Number: [id number] ?? Procedure: XR chest 1V Ordering Provider: Calos Knutson D.O. PROCEDURE:? XR CHEST 1V ? INDICATIONS:? lethargic ? TECHNIQUE:? One view of the chest was acquired.? ? COMPAR[place]:? [facility] [place], 10/28/2021, 11:23. ? FINDINGS:? ? Surgical changes and devices:? Cardiac valvular prosthesis is visualized. ? Lungs and pleura:? Mild diffuse interstitial prominence.? Patchy bibasilar airspace opacities.? No focal consolidations.acromioclavicular opacities involving both costophrenic angles may represent small bilateral pleural effusions.? No pneumothorax seen. ? Mediastinum:? Mediastinal contours appear normal.? Heart size is mildly enlarged.? ? Bones and chest wall:? No suspicious bony lesions.? Overlying soft tissues ap pear unremarkable.? ? IMPRESSION:? Borderline cardiomegaly with findings suggestive of early/mild pu lmonary edema.? Mild patchy bibasilar airspace opacities may represent atelectasis although early airspace disease/pneumonia may have a similar appearance. ? ? Recommend follow up chest radiograph 4-6 weeks after treatment to document resolution of findings and/or return to baseline examination. ? ? Dictated by: Buck Blevins M.D. on 12/18/2021 at 17:27 ? ? Approved by: Buck Blevins M.D. on 12/18/2021 at 17:29 ? ECG Data Interpretation: [1704] EKG is normal sinus rhythm rate [62] and free of any signs of ischemia or ectopy. No ST segmental elevation or depression. No T wave inversions MDM Narrative Medical decision making narrative: Patient continues to rest comfortably, no pain, he had of brief, 9 run beat of V-tach hours ago without symptoms and no recurrence. Troponins remained stable and he is continued on heparin drip. 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 <Calos Knutson, DO - Last Filed: 12/24/21 22:03> Lab Data Labs: Lab Results 12/18/21 12/18/21 12/18/21 Range/Units 17:20 17:20 17:20 WBC 9.1 (4.5-11.0) X10^3/uL RBC 4.39 L (4.5-5.9) X10^6/uL Hgb 12.8 L (13.5-17.5) g/dL Hct 36.8 L (41-53) % MCV 84.0 (80-100) fL MCH 29.1 (26-34) PG MCHC 34.7 (30-36) % RDW 16.0 H (11.6-14.8) % Plt Count 172 (150-400) X10^3/uL Neut % (Auto) 71.7 (50-75) % Lymph % (Auto) 19.3 L (25-40) % [place] % (Auto) 6.8 (3-14) % Eos % (Auto) 1.3 L (2-4) % Baso % (Auto) 0.9 (0-2) % Neut # (Auto) 6500 (5286-3324) /uL Lymph # (Auto) 1800 (7261-0549) /uL [place] # (Auto) 600 (0-900) /uL Eos # (Auto) 100 (0-450) /uL Baso # (Auto) 100 (0-100) /uL APTT (26.4-36.2) SECONDS D-Dimer (<230) ng/mL VBG pH (7.33-7.43) VBG pCO2 (45-50) mmHg VBG pO2 (35-45) mmHg VBG HCO3 (23-28) mmol/L VBG Total CO2 (24-29) mmol/L VBG O2 Saturation (70-75) % VBG Base Excess (0-4) mmol/L Sodium 133 L (137-145) mmol/L Potassium 3.7 (3.4-5.1) mmol/L Chloride 102 (98-107) mmol/L Carbon Dioxide 20 L (22-32) mmol/L BUN 13 (9-20) mg/dL Creatinine 1.21 (0.66-1.25) mg/dL Estimated GFR > 60 (>60) mL/min BUN/Creatinine Ratio 10.7 (6-22) Glucose 264 H (80-110) mg/dL Lactate 1.8 (0.7-2.1) mmol/L Calcium 8.5 (8.4-10.2) mg/dL Total Bilirubin 0.5 (0.2-1.3) mg/dL AST 25 (17-59) IU/L ALT 19 (<50) IU/L Alkaline Phosphatase 108 (38-126) U/L Total Creatine Kinase 122 (55-170) U/L CK-MB (CK-2) 1.61 (<2.37) ng/mL CK-MB (CK-2) Rel Index 1.3 L (1.5-5.0) % Troponin I 0.241 H* (0.01-0.034) ng/mL NT-Pro-B Natriuret Pep (<450) pg/mL Total Protein 6.3 (6.3-8.2) g/dL Albumin 3.5 (3.5-5.0) g/dL Globulin 2.8 (1.7-4.1) g/dL Albumin/Globulin Ratio 1.3 (1.0-2.8) Urine RBC (0-5/HPF) Urine WBC (0-5/HPF) Ur Squamous Epith Cells (0-5/HPF) Ur Transition Epith Cell (0-5/HPF) Ur Renal Epithelial Cell (0-1/HPF) Amorphous Sediment Urine Bacteria (None) Hyaline Casts (None) Granular Casts (None) Ur Culture Indicated? Ketones 0.20 (<0.27) mmol/L SARS-CoV-2 (PCR) (Negative) 12/18/21 12/18/21 12/18/21 Range/Units 17:20 17:20 17:20 WBC (4.5-11.0) X10^3/uL RBC (4.5-5.9) X10^6/uL Hgb (13.5-17.5) g/dL Hct (41-53) % MCV (80-100) fL MCH (26-34) PG MCHC (30-36) % RDW (11.6-14.8) % Plt Count (150-400) X10^3/uL Neut % (Auto) (50-75) % Lymph % (Auto) (25-40) % [place] % (Auto) (3-14) % Eos % (Auto) (2-4) % Baso % (Auto) (0-2) % Neut # (Auto) (5426-5427) /uL Lymph # (Auto) (5787-6836) /uL [place] # (Auto) (0-900) /uL Eos # (Auto) (0-450) /uL Baso # (Auto) (0-100) /uL APTT 28 (26.4-36.2) SECONDS D-Dimer 365 H (<230) ng/mL VBG pH (7.33-7.43) VBG pCO2 (45-50) mmHg VBG pO2 (35-45) mmHg VBG HCO3 (23-28) mmol/L VBG Total CO2 (24-29) mmol/L VBG O2 Saturation (70-75) % VBG Base Excess (0-4) mmol/L Sodium (137-145) mmol/L Potassium (3.4-5.1) mmol/L Chloride (98-107) mmol/L Carbon Dioxide (22-32) mmol/L BUN (9-20) mg/dL Creatinine (0.66-1.25) mg/dL Estimated GFR (>60) mL/min BUN/Creatinine Ratio (6-22) Glucose (80-110) mg/dL Lactate (0.7-2.1) mmol/L Calcium (8.4-10.2) mg/dL Total Bilirubin (0.2-1.3) mg/dL AST (17-59) IU/L ALT (<50) IU/L Alkaline Phosphatase (38-126) U/L Total Creatine Kinase (55-170) U/L CK-MB (CK-2) (<2.37) ng/mL CK-MB (CK-2) Rel Index (1.5-5.0) % Troponin I (0.01-0.034) ng/mL NT-Pro-B Natriuret Pep 523 H (<450) pg/mL Total Protein (6.3-8.2) g/dL Albumin (3.5-5.0) g/dL Globulin (1.7-4.1) g/dL Albumin/Globulin Ratio (1.0-2.8) Urine RBC (0-5/HPF) Urine WBC (0-5/HPF) Ur Squamous Epith Cells (0-5/HPF) Ur Transition Epith Cell (0-5/HPF) Ur Renal Epithelial Cell (0-1/HPF) Amorphous Sediment Urine Bacteria (None) Hyaline Casts (None) Granular Casts (None) Ur Culture Indicated? Ketones (<0.27) mmol/L SARS-CoV-2 (PCR) (Negative) 12/18/21 12/18/21 12/18/21 Range/Units 17:55 18:35 19:40 WBC (4.5-11.0) X10^3/uL RBC (4.5-5.9) X10^6/uL Hgb (13.5-17.5) g/dL Hct (41-53) % MCV (80-100) fL MCH (26-34) PG MCHC (30-36) % RDW (11.6-14.8) % Plt Count (150-400) X10^3/uL Neut % (Auto) (50-75) % Lymph % (Auto) (25-40) % [place] % (Auto) (3-14) % Eos % (Auto) (2-4) % Baso % (Auto) (0-2) % Neut # (Auto) (5540-1037) /uL Lymph # (Auto) (6340-5682) /uL [place] # (Auto) (0-900) /uL Eos # (Auto) (0-450) /uL Baso # (Auto) (0-100) /uL APTT (26.4-36.2) SECONDS D-Dimer (<230) ng/mL VBG pH 7.50 H (7.33-7.43) VBG pCO2 29.7 L (45-50) mmHg VBG pO2 27 L (35-45) mmHg VBG HCO3 23 (23-28) mmol/L VBG Total CO2 24 (24-29) mmol/L VBG O2 Saturation 58 L (70-75) % VBG Base Excess 0.0 (0-4) mmol/L Sodium (137-145) mmol/L Potassium (3.4-5.1) mmol/L Chloride (98-107) mmol/L Carbon Dioxide (22-32) mmol/L BUN (9-20) mg/dL Creatinine (0.66-1.25) mg/dL Estimated GFR (>60) mL/min BUN/Creatinine Ratio (6-22) Glucose (80-110) mg/dL Lactate (0.7-2.1) mmol/L Calcium (8.4-10.2) mg/dL Total Bilirubin (0.2-1.3) mg/dL AST (17-59) IU/L ALT (<50) IU/L Alkaline Phosphatase (38-126) U/L Total Creatine Kinase (55-170) U/L CK-MB (CK-2) (<2.37) ng/mL CK-MB (CK-2) Rel Index (1.5-5.0) % Troponin I (0.01-0.034) ng/mL NT-Pro-B Natriuret Pep (<450) pg/mL Total Protein (6.3-8.2) g/dL Albumin (3.5-5.0) g/dL Globulin (1.7-4.1) g/dL Albumin/Globulin Ratio (1.0-2.8) Urine RBC 1-5/hpf (0-5/HPF) Urine WBC 1-5/hpf (0-5/HPF) Ur Squamous Epith Cells 1-5 /hpf (0-5/HPF) Ur Transition Epith Cell 0-1/hpf (0-5/HPF) Ur Renal Epithelial Cell 0-1/hpf (0-1/HPF) Amorphous Sediment 1+ Urine Bacteria Occasional (0-1) (None) Hyaline Casts 5-10/lpf (None) Granular Casts 1-5/lpf (None) Ur Culture Indicated? Cult not indicated Ketones (<0.27) mmol/L SARS-CoV-2 (PCR) Negative (Negative) 12/18/21 12/19/21 12/19/21 Range/Units 20:35 00:20 03:51 WBC (4.5-11.0) X10^3/uL RBC (4.5-5.9) X10^6/uL Hgb (13.5-17.5) g/dL Hct (41-53) % MCV (80-100) fL MCH (26-34) PG MCHC (30-36) % RDW (11.6-14.8) % Plt Count (150-400) X10^3/uL Neut % (Auto) (50-75) % Lymph % (Auto) (25-40) % [place] % (Auto) (3-14) % Eos % (Auto) (2-4) % Baso % (Auto) (0-2) % Neut # (Auto) (7124-8157) /uL Lymph # (Auto) (9567-6067) /uL [place] # (Auto) (0-900) /uL Eos # (Auto) (0-450) /uL Baso # (Auto) (0-100) /uL APTT 47 H D (26.4-36.2) SECONDS D-Dimer (<230) ng/mL VBG pH (7.33-7.43) VBG pCO2 (45-50) mmHg VBG pO2 (35-45) mmHg VBG HCO3 (23-28) mmol/L VBG Total CO2 (24-29) mmol/L VBG O2 Saturation (70-75) % VBG Base Excess (0-4) mmol/L Sodium (137-145) mmol/L Potassium (3.4-5.1) mmol/L Chloride (98-107) mmol/L Carbon Dioxide (22-32) mmol/L BUN (9-20) mg/dL Creatinine (0.66-1.25) mg/dL Estimated GFR (>60) mL/min BUN/Creatinine Ratio (6-22) Glucose (80-110) mg/dL Lactate (0.7-2.1) mmol/L Calcium (8.4-10.2) mg/dL Total Bilirubin (0.2-1.3) mg/dL AST (17-59) IU/L ALT (<50) IU/L Alkaline Phosphatase (38-126) U/L Total Creatine Kinase 109 119 (55-170) U/L CK-MB (CK-2) 1.45 1.55 (<2.37) ng/mL CK-MB (CK-2) Rel Index 1.3 L 1.3 L (1.5-5.0) % Troponin I 0.227 H* 0.247 H* (0.01-0.034) ng/mL NT-Pro-B Natriuret Pep (<450) pg/mL Total Protein (6.3-8.2) g/dL Albumin (3.5-5.0) g/dL Globulin (1.7-4.1) g/dL Albumin/Globulin Ratio (1.0-2.8) Urine RBC (0-5/HPF) Urine WBC (0-5/HPF) Ur Squamous Epith Cells (0-5/HPF) Ur Transition Epith Cell (0-5/HPF) Ur Renal Epithelial Cell (0-1/HPF) Amorphous Sediment Urine Bacteria (None) Hyaline Casts (None) Granular Casts (None) Ur Culture Indicated? Ketones (<0.27) mmol/L SARS-CoV-2 (PCR) (Negative) 12/19/21 12/19/21 12/19/21 Range/Units 06:15 09:55 09:55 WBC (4.5-11.0) X10^3/uL RBC (4.5-5.9) X10^6/uL Hgb 11.7 L (13.5-17.5) g/dL Hct 33.5 L (41-53) % MCV (80-100) fL MCH (26-34) PG MCHC (30-36) % RDW (11.6-14.8) % Plt Count (150-400) X10^3/uL Neut % (Auto) (50-75) % Lymph % (Auto) (25-40) % [place] % (Auto) (3-14) % Eos % (Auto) (2-4) % Baso % (Auto) (0-2) % Neut # (Auto) (2487-0238) /uL Lymph # (Auto) (9425-7699) /uL [place] # (Auto) (0-900) /uL Eos # (Auto) (0-450) /uL Baso # (Auto) (0-100) /uL APTT 47 H (26.4-36.2) SECONDS D-Dimer (<230) ng/mL VBG pH (7.33-7.43) VBG pCO2 (45-50) mmHg VBG pO2 (35-45) mmHg VBG HCO3 (23-28) mmol/L VBG Total CO2 (24-29) mmol/L VBG O2 Saturation (70-75) % VBG Base Excess (0-4) mmol/L Sodium 134 L (137-145) mmol/L Potassium 3.9 (3.4-5.1) mmol/L Chloride 103 (98-107) mmol/L Carbon Dioxide 23 (22-32) mmol/L BUN 13 (9-20) mg/dL Creatinine 1.27 H (0.66-1.25) mg/dL Estimated GFR 59 L (>60) mL/min BUN/Creatinine Ratio 10.2 (6-22) Glucose 282 H (80-110) mg/dL Lactate (0.7-2.1) mmol/L Calcium 8.0 L (8.4-10.2) mg/dL Total Bilirubin (0.2-1.3) mg/dL AST (17-59) IU/L ALT (<50) IU/L Alkaline Phosphatase (38-126) U/L Total Creatine Kinase (55-170) U/L CK-MB (CK-2) (<2.37) ng/mL CK-MB (CK-2) Rel Index (1.5-5.0) % Troponin I 0.185 H* (0.01-0.034) ng/mL NT-Pro-B Natriuret Pep (<450) pg/mL Total Protein (6.3-8.2) g/dL Albumin (3.5-5.0) g/dL Globulin (1.7-4.1) g/dL Albumin/Globulin Ratio (1.0-2.8) Urine RBC (0-5/HPF) Urine WBC (0-5/HPF) Ur Squamous Epith Cells (0-5/HPF) Ur Transition Epith Cell (0-5/HPF) Ur Renal Epithelial Cell (0-1/HPF) Amorphous Sediment Urine Bacteria (None) Hyaline Casts (None) Granular Casts (None) Ur Culture Indicated? Ketones (<0.27) mmol/L SARS-CoV-2 (PCR) (Negative) 12/19/21 12/19/21 12/19/21 Range/Units 13:15 19:15 19:47 WBC (4.5-11.0) X10^3/uL RBC (4.5-5.9) X10^6/uL Hgb (13.5-17.5) g/dL Hct (41-53) % MCV (80-100) fL MCH (26-34) PG MCHC (30-36) % RDW (11.6-14.8) % Plt Count (150-400) X10^3/uL Neut % (Auto) (50-75) % Lymph % (Auto) (25-40) % [place] % (Auto) (3-14) % Eos % (Auto) (2-4) % Baso % (Auto) (0-2) % Neut # (Auto) (1749-1496) /uL Lymph # (Auto) (9773-2141) /uL [place] # (Auto) (0-900) /uL Eos # (Auto) (0-450) /uL Baso # (Auto) (0-100) /uL APTT 46 H 42 H (26.4-36.2) SECONDS D-Dimer (<230) ng/mL VBG pH (7.33-7.43) VBG pCO2 (45-50) mmHg VBG pO2 (35-45) mmHg VBG HCO3 (23-28) mmol/L VBG Total CO2 (24-29) mmol/L VBG O2 Saturation (70-75) % VBG Base Excess (0-4) mmol/L Sodium (137-145) mmol/L Potassium (3.4-5.1) mmol/L Chloride (98-107) mmol/L Carbon Dioxide (22-32) mmol/L BUN (9-20) mg/dL Creatinine (0.66-1.25) mg/dL Estimated GFR (>60) mL/min BUN/Creatinine Ratio (6-22) Glucose (80-110) mg/dL Lactate (0.7-2.1) mmol/L Calcium (8.4-10.2) mg/dL Total Bilirubin (0.2-1.3) mg/dL AST (17-59) IU/L ALT (<50) IU/L Alkaline Phosphatase (38-126) U/L Total Creatine Kinase (55-170) U/L CK-MB (CK-2) (<2.37) ng/mL CK-MB (CK-2) Rel Index (1.5-5.0) % Troponin I 0.173 H* (0.01-0.034) ng/mL NT-Pro-B Natriuret Pep (<450) pg/mL Total Protein (6.3-8.2) g/dL Albumin (3.5-5.0) g/dL Globulin (1.7-4.1) g/dL Albumin/Globulin Ratio (1.0-2.8) Urine RBC (0-5/HPF) Urine WBC (0-5/HPF) Ur Squamous Epith Cells (0-5/HPF) Ur Transition Epith Cell (0-5/HPF) Ur Renal Epithelial Cell (0-1/HPF) Amorphous Sediment Urine Bacteria (None) Hyaline Casts (None) Granular Casts (None) Ur Culture Indicated? Ketones (<0.27) mmol/L SARS-CoV-2 (PCR) (Negative) 12/20/21 12/20/21 12/20/21 Range/Units 08:30 08:30 09:05 WBC 8.1 (4.5-11.0) X10^3/uL RBC 4.61 (4.5-5.9) X10^6/uL Hgb 13.4 L (13.5-17.5) g/dL Hct 39.1 L (41-53) % MCV 84.8 (80-100) fL MCH 29.1 (26-34) PG MCHC 34.3 (30-36) % RDW 15.6 H (11.6-14.8) % Plt Count 168 (150-400) X10^3/uL Neut % (Auto) 68.8 (50-75) % Lymph % (Auto) 19.3 L (25-40) % [place] % (Auto) 7.4 (3-14) % Eos % (Auto) 3.7 (2-4) % Baso % (Auto) 0.8 (0-2) % Neut # (Auto) 5600 (1698-1771) /uL Lymph # (Auto) 1600 (1145-8475) /uL [place] # (Auto) 600 (0-900) /uL Eos # (Auto) 300 (0-450) /uL Baso # (Auto) 100 (0-100) /uL APTT 51 H D (26.4-36.2) SECONDS D-Dimer (<230) ng/mL VBG pH (7.33-7.43) VBG pCO2 (45-50) mmHg VBG pO2 (35-45) mmHg VBG HCO3 (23-28) mmol/L VBG Total CO2 (24-29) mmol/L VBG O2 Saturation (70-75) % VBG Base Excess (0-4) mmol/L Sodium 135 L (137-145) mmol/L Potassium 4.3 (3.4-5.1) mmol/L Chloride 104 (98-107) mmol/L Carbon Dioxide 24 (22-32) mmol/L BUN 12 (9-20) mg/dL Creatinine 1.18 (0.66-1.25) mg/dL Estimated GFR > 60 (>60) mL/min BUN/Creatinine Ratio 10.2 (6-22) Glucose 239 H (80-110) mg/dL Lactate (0.7-2.1) mmol/L Calcium 8.5 (8.4-10.2) mg/dL Total Bilirubin 1.1 (0.2-1.3) mg/dL AST 46 (17-59) IU/L ALT 26 (<50) IU/L Alkaline Phosphatase 113 (38-126) U/L Total Creatine Kinase (55-170) U/L CK-MB (CK-2) (<2.37) ng/mL CK-MB (CK-2) Rel Index (1.5-5.0) % Troponin I (0.01-0.034) ng/mL NT-Pro-B Natriuret Pep (<450) pg/mL Total Protein 7.4 (6.3-8.2) g/dL Albumin 4.0 (3.5-5.0) g/dL Globulin 3.4 (1.7-4.1) g/dL Albumin/Globulin Ratio 1.2 (1.0-2.8) Urine RBC (0-5/HPF) Urine WBC (0-5/HPF) Ur Squamous Epith Cells (0-5/HPF) Ur Transition Epith Cell (0-5/HPF) Ur Renal Epithelial Cell (0-1/HPF) Amorphous Sediment Urine Bacteria (None) Hyaline Casts (None) Granular Casts (None) Ur Culture Indicated? Ketones (<0.27) mmol/L SARS-CoV-2 (PCR) (Negative) Point of Care Testing Glucose POC 403 Urine Dip Bedside Urine Glucose 1000 mg/dl Bedside Urine Bilirubin - Negative Bedside Urine Ketone - Negative Urine Specific [place] 1.030 Bedside Urine Occult Blood + Bedside Urine pH 5.5 Bedside Urine Protein +++ 300 Bedside Urine Urobilinogen - Negative Bedside Urine Nitrite - Negative Bedside Urine Leukocytes - Negative Esterase Point of care testing: Point of Care Testing Glucose POC 403 Urine Dip Bedside Urine Glucose 1000 mg/dl Bedside Urine Bilirubin - Negative Bedside Urine Ketone - Negative Urine Specific [place] 1.030 Bedside Urine Occult Blood + Bedside Urine pH 5.5 Bedside Urine Protein +++ 300 Bedside Urine Urobilinogen - Negative Bedside Urine Nitrite - Negative Bedside Urine Leukocytes - Negative Esterase MDM Narrative Medical decision making narrative: Patient continues to rest comfortably, no pain, he had of brief, 9 run beat of V-tach hours ago without symptoms and no recurrence. Troponins remained stable and he is continued on heparin drip. [facility] was quite hopeful they could obtain a bed, however they recommend calling back after blade changer in the morning. 12/19/21 Mank: [id number]: Patient was signed out to myself by Dr. Brown. Patient had a hyperosmolar state was at [facility] in [place]. He did have a neg ative troponin reportedly at that time left Against Medical Advice as he was feeling better. He has a known cardiac history cardiac stents placed he believes and 1980s in another state. Patient does not recall exactly where. He has been off his medications including his anticoagulants, insulin, thyroid and antihypertensives for 3-4 weeks. Patient states that he developed exertional dyspnea about 2 or 3 days ago after he left [facility]. He states he was exercising 3 times a week with minimal issues before then. Patient does not have any active chest pain or pressure with these episodes he only has shortness of breath. He had does not have any currently. Denies fevers, chills, no nausea or vomiting, no other GI or urinary symptoms. Has not had any swelling in his extremities. Patient labs show positive troponin that is somewhat trending down words although up and down. His renal function appears to be stable range. Sodium was 134 glucose has been in the to 80s, he is has anemia. COVID is negative. Chest x-ray shows some mild pulmonary edema. Aspirin, heparin and beta-ramu were initiated and have been continued. We are currently seeking placement at a facility that has cardiology in house and potential for cardiac catheterization. Was noted to have 9 beats of V-tach overnight but no additional episodes so far. Patient was asymptomatic during that episode. I did speak with Cardiology from [facility] they recommend current plan so far. Patient is on regional hotline to seek a bed placement. 12/20/21 830 am Patient signed out to me by Dr. Hemphill. 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 Tr oponins are now trending downward. Unfortunately echocardiogram did not get done yesterday. Patient did have a run of V-tach at some point. 0820 Dr. Arriaga, on-call Cardiology updated patient's symptoms test results does recommended cardiac catheterization however there is critical bed shortage the patient within the emergency department now for 38 hours. Unlikely to get a bed today. He agrees with keeping patient here at this hospital with stress test and close monitoring. I have seen and evaluated patient myself. He just got done ambulating the resting he has no chest pain or shortness of breath. Overall feeling better. No complaints. Morning labs are pending. GENERAL: Alert pleasant 76-year-old male HEENT: Head atraumatic,EOMI, pupils reactive, face symmetric, moist mucous me mbranes CARDIOVASCULAR: Regular rate and rhythm without murmurs, rubs or gallops. RESPIRATORY: Breath sounds equal bilaterally, no wheezes rales or rhonchi. EXTREMITIES: Normal range of motion, no clubbing or edema. Neurovascularly intact NEUROLOGICAL: Alert and oriented x4. SKIN: Warm, dry, no laceration, no petechiae, no rashes or lesions. A/P 1. NSTEMI -troponin trend downward -echo today -continue heparin drip -beta-ramu -Call into [facility] for possible placement 2. DM -tight glucose control 3. 1230 Dr. barrett, cardiology agrees 1235 Dr. Han, hospitalist accepts <Hakan Hemphill MD - Last Filed: 12/20/21 18:04> Lab Data Labs: Lab Results 12/18/21 12/18/21 12/18/21 Range/Units 17:20 17:20 17:20 WBC 9.1 (4.5-11.0) X10^3/uL RBC 4.39 L (4.5-5.9) X10^6/uL Hgb 12.8 L (13.5-17.5) g/dL Hct 36.8 L (41-53) % MCV 84.0 (80-100) fL MCH 29.1 (26-34) PG MCHC 34.7 (30-36) % RDW 16.0 H (11.6-14.8) % Plt Count 172 (150-400) X10^3/uL Neut % (Auto) 71.7 (50-75) % Lymph % (Auto) 19.3 L (25-40) % [place] % (Auto) 6.8 (3-14) % Eos % (Auto) 1.3 L (2-4) % Baso % (Auto) 0.9 (0-2) % Neut # (Auto) 6500 (4708-1966) /uL Lymph # (Auto) 1800 (4789-1827) /uL [place] # (Auto) 600 (0-900) /uL Eos # (Auto) 100 (0-450) /uL Baso # (Auto) 100 (0-100) /uL APTT (26.4-36.2) SECONDS D-Dimer (<230) ng/mL VBG pH (7.33-7.43) VBG pCO2 (45-50) mmHg VBG pO2 (35-45) mmHg VBG HCO3 (23-28) mmol/L VBG Total CO2 (24-29) mmol/L VBG O2 Saturation (70-75) % VBG Base Excess (0-4) mmol/L Sodium 133 L (137-145) mmol/L Potassium 3.7 (3.4-5.1) mmol/L Chloride 102 (98-107) mmol/L Carbon Dioxide 20 L (22-32) mmol/L BUN 13 (9-20) mg/dL Creatinine 1.21 (0.66-1.25) mg/dL Estimated GFR > 60 (>60) mL/min BUN/Creatinine Ratio 10.7 (6-22) Glucose 264 H (80-110) mg/dL Lactate 1.8 (0.7-2.1) mmol/L Calcium 8.5 (8.4-10.2) mg/dL Total Bilirubin 0.5 (0.2-1.3) mg/dL AST 25 (17-59) IU/L ALT 19 (<50) IU/L Alkaline Phosphatase 108 (38-126) U/L Total Creatine Kinase 122 (55-170) U/L CK-MB (CK-2) 1.61 (<2.37) ng/mL CK-MB (CK-2) Rel Index 1.3 L (1.5-5.0) % Troponin I 0.241 H* (0.01-0.034) ng/mL NT-Pro-B Natriuret Pep (<450) pg/mL Total Protein 6.3 (6.3-8.2) g/dL Albumin 3.5 (3.5-5.0) g/dL Globulin 2.8 (1.7-4.1) g/dL Albumin/Globulin Ratio 1.3 (1.0-2.8) Urine RBC (0-5/HPF) Urine WBC (0-5/HPF) Ur Squamous Epith Cells (0-5/HPF) Ur Transition Epith Cell (0-5/HPF) Ur Renal Epithelial Cell (0-1/HPF) Amorphous Sediment Urine Bacteria (None) Hyaline Casts (None) Granular Casts (None) Ur Culture Indicated? Ketones 0.20 (<0.27) mmol/L SARS-CoV-2 (PCR) (Negative) 12/18/21 12/18/21 12/18/21 Range/Units 17:20 17:20 17:20 WBC (4.5-11.0) X10^3/uL RBC (4.5-5.9) X10^6/uL Hgb (13.5-17.5) g/dL Hct (41-53) % MCV (80-100) fL MCH (26-34) PG MCHC (30-36) % RDW (11.6-14.8) % Plt Count (150-400) X10^3/uL Neut % (Auto) (50-75) % Lymph % (Auto) (25-40) % [place] % (Auto) (3-14) % Eos % (Auto) (2-4) % Baso % (Auto) (0-2) % Neut # (Auto) (9588-9746) /uL Lymph # (Auto) (9479-2573) /uL [place] # (Auto) (0-900) /uL Eos # (Auto) (0-450) /uL Baso # (Auto) (0-100) /uL APTT 28 (26.4-36.2) SECONDS D-Dimer 365 H (<230) ng/mL VBG pH (7.33-7.43) VBG pCO2 (45-50) mmHg VBG pO2 (35-45) mmHg VBG HCO3 (23-28) mmol/L VBG Total CO2 (24-29) mmol/L VBG O2 Saturation (70-75) % VBG Base Excess (0-4) mmol/L Sodium (137-145) mmol/L Potassium (3.4-5.1) mmol/L Chloride (98-107) mmol/L Carbon Dioxide (22-32) mmol/L BUN (9-20) mg/dL Creatinine (0.66-1.25) mg/dL Estimated GFR (>60) mL/min BUN/Creatinine Ratio (6-22) Glucose (80-110) mg/dL Lactate (0.7-2.1) mmol/L Calcium (8.4-10.2) mg/dL Total Bilirubin (0.2-1.3) mg/dL AST (17-59) IU/L ALT (<50) IU/L Alkaline Phosphatase (38-126) U/L Total Creatine Kinase (55-170) U/L CK-MB (CK-2) (<2.37) ng/mL CK-MB (CK-2) Rel Index (1.5-5.0) % Troponin I (0.01-0.034) ng/mL NT-Pro-B Natriuret Pep 523 H (<450) pg/mL Total Protein (6.3-8.2) g/dL Albumin (3.5-5.0) g/dL Globulin (1.7-4.1) g/dL Albumin/Globulin Ratio (1.0-2.8) Urine RBC (0-5/HPF) Urine WBC (0-5/HPF) Ur Squamous Epith Cells (0-5/HPF) Ur Transition Epith Cell (0-5/HPF) Ur Renal Epithelial Cell (0-1/HPF) Amorphous Sediment Urine Bacteria (None) Hyaline Casts (None) Granular Casts (None) Ur Culture Indicated? Ketones (<0.27) mmol/L SARS-CoV-2 (PCR) (Negative) 12/18/21 12/18/21 12/18/21 Range/Units 17:55 18:35 19:40 WBC (4.5-11.0) X10^3/uL RBC (4.5-5.9) X10^6/uL Hgb (13.5-17.5) g/dL Hct (41-53) % MCV (80-100) fL MCH (26-34) PG MCHC (30-36) % RDW (11.6-14.8) % Plt Count (150-400) X10^3/uL Neut % (Auto) (50-75) % Lymph % (Auto) (25-40) % [place] % (Auto) (3-14) % Eos % (Auto) (2-4) % Baso % (Auto) (0-2) % Neut # (Auto) (1947-2801) /uL Lymph # (Auto) (2181-4355) /uL [place] # (Auto) (0-900) /uL Eos # (Auto) (0-450) /uL Baso # (Auto) (0-100) /uL APTT (26.4-36.2) SECONDS D-Dimer (<230) ng/mL VBG pH 7.50 H (7.33-7.43) VBG pCO2 29.7 L (45-50) mmHg VBG pO2 27 L (35-45) mmHg VBG HCO3 23 (23-28) mmol/L VBG Total CO2 24 (24-29) mmol/L VBG O2 Saturation 58 L (70-75) % VBG Base Excess 0.0 (0-4) mmol/L Sodium (137-145) mmol/L Potassium (3.4-5.1) mmol/L Chloride (98-107) mmol/L Carbon Dioxide (22-32) mmol/L BUN (9-20) mg/dL Creatinine (0.66-1.25) mg/dL Estimated GFR (>60) mL/min BUN/Creatinine Ratio (6-22) Glucose (80-110) mg/dL Lactate (0.7-2.1) mmol/L Calcium (8.4-10.2) mg/dL Total Bilirubin (0.2-1.3) mg/dL AST (17-59) IU/L ALT (<50) IU/L Alkaline Phosphatase (38-126) U/L Total Creatine Kinase (55-170) U/L CK-MB (CK-2) (<2.37) ng/mL CK-MB (CK-2) Rel Index (1.5-5.0) % Troponin I (0.01-0.034) ng/mL NT-Pro-B Natriuret Pep (<450) pg/mL Total Protein (6.3-8.2) g/dL Albumin (3.5-5.0) g/dL Globulin (1.7-4.1) g/dL Albumin/Globulin Ratio (1.0-2.8) Urine RBC 1-5/hpf (0-5/HPF) Urine WBC 1-5/hpf (0-5/HPF) Ur Squamous Epith Cells 1-5 /hpf (0-5/HPF) Ur Transition Epith Cell 0-1/hpf (0-5/HPF) Ur Renal Epithelial Cell 0-1/hpf (0-1/HPF) Amorphous Sediment 1+ Urine Bacteria Occasional (0-1) (None) Hyaline Casts 5-10/lpf (None) Granular Casts 1-5/lpf (None) Ur Culture Indicated? Cult not indicated Ketones (<0.27) mmol/L SARS-CoV-2 (PCR) Negative (Negative) 12/18/21 12/19/21 12/19/21 Range/Units 20:35 00:20 03:51 WBC (4.5-11.0) X10^3/uL RBC (4.5-5.9) X10^6/uL Hgb (13.5-17.5) g/dL Hct (41-53) % MCV (80-100) fL MCH (26-34) PG MCHC (30-36) % RDW (11.6-14.8) % Plt Count (150-400) X10^3/uL Neut % (Auto) (50-75) % Lymph % (Auto) (25-40) % [place] % (Auto) (3-14) % Eos % (Auto) (2-4) % Baso % (Auto) (0-2) % Neut # (Auto) (0369-7530) /uL Lymph # (Auto) (6168-4131) /uL [place] # (Auto) (0-900) /uL Eos # (Auto) (0-450) /uL Baso # (Auto) (0-100) /uL APTT 47 H D (26.4-36.2) SECONDS D-Dimer (<230) ng/mL VBG pH (7.33-7.43) VBG pCO2 (45-50) mmHg VBG pO2 (35-45) mmHg VBG HCO3 (23-28) mmol/L VBG Total CO2 (24-29) mmol/L VBG O2 Saturation (70-75) % VBG Base Excess (0-4) mmol/L Sodium (137-145) mmol/L Potassium (3.4-5.1) mmol/L Chloride (98-107) mmol/L Carbon Dioxide (22-32) mmol/L BUN (9-20) mg/dL Creatinine (0.66-1.25) mg/dL Estimated GFR (>60) mL/min BUN/Creatinine Ratio (6-22) Glucose (80-110) mg/dL Lactate (0.7-2.1) mmol/L Calcium (8.4-10.2) mg/dL Total Bilirubin (0.2-1.3) mg/dL AST (17-59) IU/L ALT (<50) IU/L Alkaline Phosphatase (38-126) U/L Total Creatine Kinase 109 119 (55-170) U/L CK-MB (CK-2) 1.45 1.55 (<2.37) ng/mL CK-MB (CK-2) Rel Index 1.3 L 1.3 L (1.5-5.0) % Troponin I 0.227 H* 0.247 H* (0.01-0.034) ng/mL NT-Pro-B Natriuret Pep (<450) pg/mL Total Protein (6.3-8.2) g/dL Albumin (3.5-5.0) g/dL Globulin (1.7-4.1) g/dL Albumin/Globulin Ratio (1.0-2.8) Urine RBC (0-5/HPF) Urine WBC (0-5/HPF) Ur Squamous Epith Cells (0-5/HPF) Ur Transition Epith Cell (0-5/HPF) Ur Renal Epithelial Cell (0-1/HPF) Amorphous Sediment Urine Bacteria (None) Hyaline Casts (None) Granular Casts (None) Ur Culture Indicated? Ketones (<0.27) mmol/L SARS-CoV-2 (PCR) (Negative) 12/19/21 12/19/21 12/19/21 Range/Units 06:15 09:55 09:55 WBC (4.5-11.0) X10^3/uL RBC (4.5-5.9) X10^6/uL Hgb 11.7 L (13.5-17.5) g/dL Hct 33.5 L (41-53) % MCV (80-100) fL MCH (26-34) PG MCHC (30-36) % RDW (11.6-14.8) % Plt Count (150-400) X10^3/uL Neut % (Auto) (50-75) % Lymph % (Auto) (25-40) % [place] % (Auto) (3-14) % Eos % (Auto) (2-4) % Baso % (Auto) (0-2) % Neut # (Auto) (2711-6174) /uL Lymph # (Auto) (6615-2973) /uL [place] # (Auto) (0-900) /uL Eos # (Auto) (0-450) /uL Baso # (Auto) (0-100) /uL APTT 47 H (26.4-36.2) SECONDS D-Dimer (<230) ng/mL VBG pH (7.33-7.43) VBG pCO2 (45-50) mmHg VBG pO2 (35-45) mmHg VBG HCO3 (23-28) mmol/L VBG Total CO2 (24-29) mmol/L VBG O2 Saturation (70-75) % VBG Base Excess (0-4) mmol/L Sodium 134 L (137-145) mmol/L Potassium 3.9 (3.4-5.1) mmol/L Chloride 103 (98-107) mmol/L Carbon Dioxide 23 (22-32) mmol/L BUN 13 (9-20) mg/dL Creatinine 1.27 H (0.66-1.25) mg/dL Estimated GFR 59 L (>60) mL/min BUN/Creatinine Ratio 10.2 (6-22) Glucose 282 H (80-110) mg/dL Lactate (0.7-2.1) mmol/L Calcium 8.0 L (8.4-10.2) mg/dL Total Bilirubin (0.2-1.3) mg/dL AST (17-59) IU/L ALT (<50) IU/L Alkaline Phosphatase (38-126) U/L Total Creatine Kinase (55-170) U/L CK-MB (CK-2) (<2.37) ng/mL CK-MB (CK-2) Rel Index (1.5-5.0) % Troponin I 0.185 H* (0.01-0.034) ng/mL NT-Pro-B Natriuret Pep (<450) pg/mL Total Protein (6.3-8.2) g/dL Albumin (3.5-5.0) g/dL Globulin (1.7-4.1) g/dL Albumin/Globulin Ratio (1.0-2.8) Urine RBC (0-5/HPF) Urine WBC (0-5/HPF) Ur Squamous Epith Cells (0-5/HPF) Ur Transition Epith Cell (0-5/HPF) Ur Renal Epithelial Cell (0-1/HPF) Amorphous Sediment Urine Bacteria (None) Hyaline Casts (None) Granular Casts (None) Ur Culture Indicated? Ketones (<0.27) mmol/L SARS-CoV-2 (PCR) (Negative) 12/19/21 12/19/21 12/19/21 Range/Units 13:15 19:15 19:47 WBC (4.5-11.0) X10^3/uL RBC (4.5-5.9) X10^6/uL Hgb (13.5-17.5) g/dL Hct (41-53) % MCV (80-100) fL MCH (26-34) PG MCHC (30-36) % RDW (11.6-14.8) % Plt Count (150-400) X10^3/uL Neut % (Auto) (50-75) % Lymph % (Auto) (25-40) % [place] % (Auto) (3-14) % Eos % (Auto) (2-4) % Baso % (Auto) (0-2) % Neut # (Auto) (9157-5512) /uL Lymph # (Auto) (0224-7938) /uL [place] # (Auto) (0-900) /uL Eos # (Auto) (0-450) /uL Baso # (Auto) (0-100) /uL APTT 46 H 42 H (26.4-36.2) SECONDS D-Dimer (<230) ng/mL VBG pH (7.33-7.43) VBG pCO2 (45-50) mmHg VBG pO2 (35-45) mmHg VBG HCO3 (23-28) mmol/L VBG Total CO2 (24-29) mmol/L VBG O2 Saturation (70-75) % VBG Base Excess (0-4) mmol/L Sodium (137-145) mmol/L Potassium (3.4-5.1) mmol/L Chloride (98-107) mmol/L Carbon Dioxide (22-32) mmol/L BUN (9-20) mg/dL Creatinine (0.66-1.25) mg/dL Estimated GFR (>60) mL/min BUN/Creatinine Ratio (6-22) Glucose (80-110) mg/dL Lactate (0.7-2.1) mmol/L Calcium (8.4-10.2) mg/dL Total Bilirubin (0.2-1.3) mg/dL AST (17-59) IU/L ALT (<50) IU/L Alkaline Phosphatase (38-126) U/L Total Creatine Kinase (55-170) U/L CK-MB (CK-2) (<2.37) ng/mL CK-MB (CK-2) Rel Index (1.5-5.0) % Troponin I 0.173 H* (0.01-0.034) ng/mL NT-Pro-B Natriuret Pep (<450) pg/mL Total Protein (6.3-8.2) g/dL Albumin (3.5-5.0) g/dL Globulin (1.7-4.1) g/dL Albumin/Globulin Ratio (1.0-2.8) Urine RBC (0-5/HPF) Urine WBC (0-5/HPF) Ur Squamous Epith Cells (0-5/HPF) Ur Transition Epith Cell (0-5/HPF) Ur Renal Epithelial Cell (0-1/HPF) Amorphous Sediment Urine Bacteria (None) Hyaline Casts (None) Granular Casts (None) Ur Culture Indicated? Ketones (<0.27) mmol/L SARS-CoV-2 (PCR) (Negative) 12/20/21 12/20/21 12/20/21 Range/Units 08:30 08:30 09:05 WBC 8.1 (4.5-11.0) X10^3/uL RBC 4.61 (4.5-5.9) X10^6/uL Hgb 13.4 L (13.5-17.5) g/dL Hct 39.1 L (41-53) % MCV 84.8 (80-100) fL MCH 29.1 (26-34) PG MCHC 34.3 (30-36) % RDW 15.6 H (11.6-14.8) % Plt Count 168 (150-400) X10^3/uL Neut % (Auto) 68.8 (50-75) % Lymph % (Auto) 19.3 L (25-40) % [place] % (Auto) 7.4 (3-14) % Eos % (Auto) 3.7 (2-4) % Baso % (Auto) 0.8 (0-2) % Neut # (Auto) 5600 (5403-9734) /uL Lymph # (Auto) 1600 (8780-9512) /uL [place] # (Auto) 600 (0-900) /uL Eos # (Auto) 300 (0-450) /uL Baso # (Auto) 100 (0-100) /uL APTT 51 H D (26.4-36.2) SECONDS D-Dimer (<230) ng/mL VBG pH (7.33-7.43) VBG pCO2 (45-50) mmHg VBG pO2 (35-45) mmHg VBG HCO3 (23-28) mmol/L VBG Total CO2 (24-29) mmol/L VBG O2 Saturation (70-75) % VBG Base Excess (0-4) mmol/L Sodium 135 L (137-145) mmol/L Potassium 4.3 (3.4-5.1) mmol/L Chloride 104 (98-107) mmol/L Carbon Dioxide 24 (22-32) mmol/L BUN 12 (9-20) mg/dL Creatinine 1.18 (0.66-1.25) mg/dL Estimated GFR > 60 (>60) mL/min BUN/Creatinine Ratio 10.2 (6-22) Glucose 239 H (80-110) mg/dL Lactate (0.7-2.1) mmol/L Calcium 8.5 (8.4-10.2) mg/dL Total Bilirubin 1.1 (0.2-1.3) mg/dL AST 46 (17-59) IU/L ALT 26 (<50) IU/L Alkaline Phosphatase 113 (38-126) U/L Total Creatine Kinase (55-170) U/L CK-MB (CK-2) (<2.37) ng/mL CK-MB (CK-2) Rel Index (1.5-5.0) % Troponin I (0.01-0.034) ng/mL NT-Pro-B Natriuret Pep (<450) pg/mL Total Protein 7.4 (6.3-8.2) g/dL Albumin 4.0 (3.5-5.0) g/dL Globulin 3.4 (1.7-4.1) g/dL Albumin/Globulin Ratio 1.2 (1.0-2.8) Urine RBC (0-5/HPF) Urine WBC (0-5/HPF) Ur Squamous Epith Cells (0-5/HPF) Ur Transition Epith Cell (0-5/HPF) Ur Renal Epithelial Cell (0-1/HPF) Amorphous Sediment Urine Bacteria (None) Hyaline Casts (None) Granular Casts (None) Ur Culture Indicated? Ketones (<0.27) mmol/L SARS-CoV-2 (PCR) (Negative) Point of Care Testing Glucose POC 403 Urine Dip Bedside Urine Glucose 1000 mg/dl Bedside Urine Bilirubin - Negative Bedside Urine Ketone - Negative Urine Specific [place] 1.030 Bedside Urine Occult Blood + Bedside Urine pH 5.5 Bedside Urine Protein +++ 300 Bedside Urine Urobilinogen - Negative Bedside Urine Nitrite - Negative Bedside Urine Leukocytes - Negative Esterase Point of care testing: Point of Care Testing Glucose POC 403 Urine Dip Bedside Urine Glucose 1000 mg/dl Bedside Urine Bilirubin - Negative Bedside Urine Ketone - Negative Urine Specific [place] 1.030 Bedside Urine Occult Blood + Bedside Urine pH 5.5 Bedside Urine Protein +++ 300 Bedside Urine Urobilinogen - Negative Bedside Urine Nitrite - Negative Bedside Urine Leukocytes - Negative Esterase <Nena Choudhary, DO - Last Filed: 12/20/21 17:00> Lab Data Labs: Lab Results 12/18/21 12/18/21 12/18/21 Range/Units 17:20 17:20 17:20 WBC 9.1 (4.5-11.0) X10^3/uL RBC 4.39 L (4.5-5.9) X10^6/uL Hgb 12.8 L (13.5-17.5) g/dL Hct 36.8 L (41-53) % MCV 84.0 (80-100) fL MCH 29.1 (26-34) PG MCHC 34.7 (30-36) % RDW 16.0 H (11.6-14.8) % Plt Count 172 (150-400) X10^3/uL Neut % (Auto) 71.7 (50-75) % Lymph % (Auto) 19.3 L (25-40) % [place] % (Auto) 6.8 (3-14) % Eos % (Auto) 1.3 L (2-4) % Baso % (Auto) 0.9 (0-2) % Neut # (Auto) 6500 (6439-5682) /uL Lymph # (Auto) 1800 (9340-1325) /uL [place] # (Auto) 600 (0-900) /uL Eos # (Auto) 100 (0-450) /uL Baso # (Auto) 100 (0-100) /uL APTT (26.4-36.2) SECONDS D-Dimer (<230) ng/mL VBG pH (7.33-7.43) VBG pCO2 (45-50) mmHg VBG pO2 (35-45) mmHg VBG HCO3 (23-28) mmol/L VBG Total CO2 (24-29) mmol/L VBG O2 Saturation (70-75) % VBG Base Excess (0-4) mmol/L Sodium 133 L (137-145) mmol/L Potassium 3.7 (3.4-5.1) mmol/L Chloride 102 (98-107) mmol/L Carbon Dioxide 20 L (22-32) mmol/L BUN 13 (9-20) mg/dL Creatinine 1.21 (0.66-1.25) mg/dL Estimated GFR > 60 (>60) mL/min BUN/Creatinine Ratio 10.7 (6-22) Glucose 264 H (80-110) mg/dL Lactate 1.8 (0.7-2.1) mmol/L Calcium 8.5 (8.4-10.2) mg/dL Total Bilirubin 0.5 (0.2-1.3) mg/dL AST 25 (17-59) IU/L ALT 19 (<50) IU/L Alkaline Phosphatase 108 (38-126) U/L Total Creatine Kinase 122 (55-170) U/L CK-MB (CK-2) 1.61 (<2.37) ng/mL CK-MB (CK-2) Rel Index 1.3 L (1.5-5.0) % Troponin I 0.241 H* (0.01-0.034) ng/mL NT-Pro-B Natriuret Pep (<450) pg/mL Total Protein 6.3 (6.3-8.2) g/dL Albumin 3.5 (3.5-5.0) g/dL Globulin 2.8 (1.7-4.1) g/dL Albumin/Globulin Ratio 1.3 (1.0-2.8) Urine RBC (0-5/HPF) Urine WBC (0-5/HPF) Ur Squamous Epith Cells (0-5/HPF) Ur Transition Epith Cell (0-5/HPF) Ur Renal Epithelial Cell (0-1/HPF) Amorphous Sediment Urine Bacteria (None) Hyaline Casts (None) Granular Casts (None) Ur Culture Indicated? Ketones 0.20 (<0.27) mmol/L SARS-CoV-2 (PCR) (Negative) 12/18/21 12/18/21 12/18/21 Range/Units 17:20 17:20 17:20 WBC (4.5-11.0) X10^3/uL RBC (4.5-5.9) X10^6/uL Hgb (13.5-17.5) g/dL Hct (41-53) % MCV (80-100) fL MCH (26-34) PG MCHC (30-36) % RDW (11.6-14.8) % Plt Count (150-400) X10^3/uL Neut % (Auto) (50-75) % Lymph % (Auto) (25-40) % [place] % (Auto) (3-14) % Eos % (Auto) (2-4) % Baso % (Auto) (0-2) % Neut # (Auto) (2607-9946) /uL Lymph # (Auto) (5488-7244) /uL [place] # (Auto) (0-900) /uL Eos # (Auto) (0-450) /uL Baso # (Auto) (0-100) /uL APTT 28 (26.4-36.2) SECONDS D-Dimer 365 H (<230) ng/mL VBG pH (7.33-7.43) VBG pCO2 (45-50) mmHg VBG pO2 (35-45) mmHg VBG HCO3 (23-28) mmol/L VBG Total CO2 (24-29) mmol/L VBG O2 Saturation (70-75) % VBG Base Excess (0-4) mmol/L Sodium (137-145) mmol/L Potassium (3.4-5.1) mmol/L Chloride (98-107) mmol/L Carbon Dioxide (22-32) mmol/L BUN (9-20) mg/dL Creatinine (0.66-1.25) mg/dL Estimated GFR (>60) mL/min BUN/Creatinine Ratio (6-22) Glucose (80-110) mg/dL Lactate (0.7-2.1) mmol/L Calcium (8.4-10.2) mg/dL Total Bilirubin (0.2-1.3) mg/dL AST (17-59) IU/L ALT (<50) IU/L Alkaline Phosphatase (38-126) U/L Total Creatine Kinase (55-170) U/L CK-MB (CK-2) (<2.37) ng/mL CK-MB (CK-2) Rel Index (1.5-5.0) % Troponin I (0.01-0.034) ng/mL NT-Pro-B Natriuret Pep 523 H (<450) pg/mL Total Protein (6.3-8.2) g/dL Albumin (3.5-5.0) g/dL Globulin (1.7-4.1) g/dL Albumin/Globulin Ratio (1.0-2.8) Urine RBC (0-5/HPF) Urine WBC (0-5/HPF) Ur Squamous Epith Cells (0-5/HPF) Ur Transition Epith Cell (0-5/HPF) Ur Renal Epithelial Cell (0-1/HPF) Amorphous Sediment Urine Bacteria (None) Hyaline Casts (None) Granular Casts (None) Ur Culture Indicated? Ketones (<0.27) mmol/L SARS-CoV-2 (PCR) (Negative) 12/18/21 12/18/21 12/18/21 Range/Units 17:55 18:35 19:40 WBC (4.5-11.0) X10^3/uL RBC (4.5-5.9) X10^6/uL Hgb (13.5-17.5) g/dL Hct (41-53) % MCV (80-100) fL MCH (26-34) PG MCHC (30-36) % RDW (11.6-14.8) % Plt Count (150-400) X10^3/uL Neut % (Auto) (50-75) % Lymph % (Auto) (25-40) % [place] % (Auto) (3-14) % Eos % (Auto) (2-4) % Baso % (Auto) (0-2) % Neut # (Auto) (2592-4495) /uL Lymph # (Auto) (5382-8204) /uL [place] # (Auto) (0-900) /uL Eos # (Auto) (0-450) /uL Baso # (Auto) (0-100) /uL APTT (26.4-36.2) SECONDS D-Dimer (<230) ng/mL VBG pH 7.50 H (7.33-7.43) VBG pCO2 29.7 L (45-50) mmHg VBG pO2 27 L (35-45) mmHg VBG HCO3 23 (23-28) mmol/L VBG Total CO2 24 (24-29) mmol/L VBG O2 Saturation 58 L (70-75) % VBG Base Excess 0.0 (0-4) mmol/L Sodium (137-145) mmol/L Potassium (3.4-5.1) mmol/L Chloride (98-107) mmol/L Carbon Dioxide (22-32) mmol/L BUN (9-20) mg/dL Creatinine (0.66-1.25) mg/dL Estimated GFR (>60) mL/min BUN/Creatinine Ratio (6-22) Glucose (80-110) mg/dL Lactate (0.7-2.1) mmol/L Calcium (8.4-10.2) mg/dL Total Bilirubin (0.2-1.3) mg/dL AST (17-59) IU/L ALT (<50) IU/L Alkaline Phosphatase (38-126) U/L Total Creatine Kinase (55-170) U/L CK-MB (CK-2) (<2.37) ng/mL CK-MB (CK-2) Rel Index (1.5-5.0) % Troponin I (0.01-0.034) ng/mL NT-Pro-B Natriuret Pep (<450) pg/mL Total Protein (6.3-8.2) g/dL Albumin (3.5-5.0) g/dL Globulin (1.7-4.1) g/dL Albumin/Globulin Ratio (1.0-2.8) Urine RBC 1-5/hpf (0-5/HPF) Urine WBC 1-5/hpf (0-5/HPF) Ur Squamous Epith Cells 1-5 /hpf (0-5/HPF) Ur Transition Epith Cell 0-1/hpf (0-5/HPF) Ur Renal Epithelial Cell 0-1/hpf (0-1/HPF) Amorphous Sediment 1+ Urine Bacteria Occasional (0-1) (None) Hyaline Casts 5-10/lpf (None) Granular Casts 1-5/lpf (None) Ur Culture Indicated? Cult not indicated Ketones (<0.27) mmol/L SARS-CoV-2 (PCR) Negative (Negative) 12/18/21 12/19/21 12/19/21 Range/Units 20:35 00:20 03:51 WBC (4.5-11.0) X10^3/uL RBC (4.5-5.9) X10^6/uL Hgb (13.5-17.5) g/dL Hct (41-53) % MCV (80-100) fL MCH (26-34) PG MCHC (30-36) % RDW (11.6-14.8) % Plt Count (150-400) X10^3/uL Neut % (Auto) (50-75) % Lymph % (Auto) (25-40) % [place] % (Auto) (3-14) % Eos % (Auto) (2-4) % Baso % (Auto) (0-2) % Neut # (Auto) (7109-1682) /uL Lymph # (Auto) (7792-0827) /uL [place] # (Auto) (0-900) /uL Eos # (Auto) (0-450) /uL Baso # (Auto) (0-100) /uL APTT 47 H D (26.4-36.2) SECONDS D-Dimer (<230) ng/mL VBG pH (7.33-7.43) VBG pCO2 (45-50) mmHg VBG pO2 (35-45) mmHg VBG HCO3 (23-28) mmol/L VBG Total CO2 (24-29) mmol/L VBG O2 Saturation (70-75) % VBG Base Excess (0-4) mmol/L Sodium (137-145) mmol/L Potassium (3.4-5.1) mmol/L Chloride (98-107) mmol/L Carbon Dioxide (22-32) mmol/L BUN (9-20) mg/dL Creatinine (0.66-1.25) mg/dL Estimated GFR (>60) mL/min BUN/Creatinine Ratio (6-22) Glucose (80-110) mg/dL Lactate (0.7-2.1) mmol/L Calcium (8.4-10.2) mg/dL Total Bilirubin (0.2-1.3) mg/dL AST (17-59) IU/L ALT (<50) IU/L Alkaline Phosphatase (38-126) U/L Total Creatine Kinase 109 119 (55-170) U/L CK-MB (CK-2) 1.45 1.55 (<2.37) ng/mL CK-MB (CK-2) Rel Index 1.3 L 1.3 L (1.5-5.0) % Troponin I 0.227 H* 0.247 H* (0.01-0.034) ng/mL NT-Pro-B Natriuret Pep (<450) pg/mL Total Protein (6.3-8.2) g/dL Albumin (3.5-5.0) g/dL Globulin (1.7-4.1) g/dL Albumin/Globulin Ratio (1.0-2.8) Urine RBC (0-5/HPF) Urine WBC (0-5/HPF) Ur Squamous Epith Cells (0-5/HPF) Ur Transition Epith Cell (0-5/HPF) Ur Renal Epithelial Cell (0-1/HPF) Amorphous Sediment Urine Bacteria (None) Hyaline Casts (None) Granular Casts (None) Ur Culture Indicated? Ketones (<0.27) mmol/L SARS-CoV-2 (PCR) (Negative) 12/19/21 12/19/21 12/19/21 Range/Units 06:15 09:55 09:55 WBC (4.5-11.0) X10^3/uL RBC (4.5-5.9) X10^6/uL Hgb 11.7 L (13.5-17.5) g/dL Hct 33.5 L (41-53) % MCV (80-100) fL MCH (26-34) PG MCHC (30-36) % RDW (11.6-14.8) % Plt Count (150-400) X10^3/uL Neut % (Auto) (50-75) % Lymph % (Auto) (25-40) % [place] % (Auto) (3-14) % Eos % (Auto) (2-4) % Baso % (Auto) (0-2) % Neut # (Auto) (6978-7844) /uL Lymph # (Auto) (5358-2708) /uL [place] # (Auto) (0-900) /uL Eos # (Auto) (0-450) /uL Baso # (Auto) (0-100) /uL APTT 47 H (26.4-36.2) SECONDS D-Dimer (<230) ng/mL VBG pH (7.33-7.43) VBG pCO2 (45-50) mmHg VBG pO2 (35-45) mmHg VBG HCO3 (23-28) mmol/L VBG Total CO2 (24-29) mmol/L VBG O2 Saturation (70-75) % VBG Base Excess (0-4) mmol/L Sodium 134 L (137-145) mmol/L Potassium 3.9 (3.4-5.1) mmol/L Chloride 103 (98-107) mmol/L Carbon Dioxide 23 (22-32) mmol/L BUN 13 (9-20) mg/dL Creatinine 1.27 H (0.66-1.25) mg/dL Estimated GFR 59 L (>60) mL/min BUN/Creatinine Ratio 10.2 (6-22) Glucose 282 H (80-110) mg/dL Lactate (0.7-2.1) mmol/L Calcium 8.0 L (8.4-10.2) mg/dL Total Bilirubin (0.2-1.3) mg/dL AST (17-59) IU/L ALT (<50) IU/L Alkaline Phosphatase (38-126) U/L Total Creatine Kinase (55-170) U/L CK-MB (CK-2) (<2.37) ng/mL CK-MB (CK-2) Rel Index (1.5-5.0) % Troponin I 0.185 H* (0.01-0.034) ng/mL NT-Pro-B Natriuret Pep (<450) pg/mL Total Protein (6.3-8.2) g/dL Albumin (3.5-5.0) g/dL Globulin (1.7-4.1) g/dL Albumin/Globulin Ratio (1.0-2.8) Urine RBC (0-5/HPF) Urine WBC (0-5/HPF) Ur Squamous Epith Cells (0-5/HPF) Ur Transition Epith Cell (0-5/HPF) Ur Renal Epithelial Cell (0-1/HPF) Amorphous Sediment Urine Bacteria (None) Hyaline Casts (None) Granular Casts (None) Ur Culture Indicated? Ketones (<0.27) mmol/L SARS-CoV-2 (PCR) (Negative) 12/19/21 12/19/21 12/19/21 Range/Units 13:15 19:15 19:47 WBC (4.5-11.0) X10^3/uL RBC (4.5-5.9) X10^6/uL Hgb (13.5-17.5) g/dL Hct (41-53) % MCV (80-100) fL MCH (26-34) PG MCHC (30-36) % RDW (11.6-14.8) % Plt Count (150-400) X10^3/uL Neut % (Auto) (50-75) % Lymph % (Auto) (25-40) % [place] % (Auto) (3-14) % Eos % (Auto) (2-4) % Baso % (Auto) (0-2) % Neut # (Auto) (9671-7659) /uL Lymph # (Auto) (8665-9109) /uL [place] # (Auto) (0-900) /uL Eos # (Auto) (0-450) /uL Baso # (Auto) (0-100) /uL APTT 46 H 42 H (26.4-36.2) SECONDS D-Dimer (<230) ng/mL VBG pH (7.33-7.43) VBG pCO2 (45-50) mmHg VBG pO2 (35-45) mmHg VBG HCO3 (23-28) mmol/L VBG Total CO2 (24-29) mmol/L VBG O2 Saturation (70-75) % VBG Base Excess (0-4) mmol/L Sodium (137-145) mmol/L Potassium (3.4-5.1) mmol/L Chloride (98-107) mmol/L Carbon Dioxide (22-32) mmol/L BUN (9-20) mg/dL Creatinine (0.66-1.25) mg/dL Estimated GFR (>60) mL/min BUN/Creatinine Ratio (6-22) Glucose (80-110) mg/dL Lactate (0.7-2.1) mmol/L Calcium (8.4-10.2) mg/dL Total Bilirubin (0.2-1.3) mg/dL AST (17-59) IU/L ALT (<50) IU/L Alkaline Phosphatase (38-126) U/L Total Creatine Kinase (55-170) U/L CK-MB (CK-2) (<2.37) ng/mL CK-MB (CK-2) Rel Index (1.5-5.0) % Troponin I 0.173 H* (0.01-0.034) ng/mL NT-Pro-B Natriuret Pep (<450) pg/mL Total Protein (6.3-8.2) g/dL Albumin (3.5-5.0) g/dL Globulin (1.7-4.1) g/dL Albumin/Globulin Ratio (1.0-2.8) Urine RBC (0-5/HPF) Urine WBC (0-5/HPF) Ur Squamous Epith Cells (0-5/HPF) Ur Transition Epith Cell (0-5/HPF) Ur Renal Epithelial Cell (0-1/HPF) Amorphous Sediment Urine Bacteria (None) Hyaline Casts (None) Granular Casts (None) Ur Culture Indicated? Ketones (<0.27) mmol/L SARS-CoV-2 (PCR) (Negative) 12/20/21 12/20/21 12/20/21 Range/Units 08:30 08:30 09:05 WBC 8.1 (4.5-11.0) X10^3/uL RBC 4.61 (4.5-5.9) X10^6/uL Hgb 13.4 L (13.5-17.5) g/dL Hct 39.1 L (41-53) % MCV 84.8 (80-100) fL MCH 29.1 (26-34) PG MCHC 34.3 (30-36) % RDW 15.6 H (11.6-14.8) % Plt Count 168 (150-400) X10^3/uL Neut % (Auto) 68.8 (50-75) % Lymph % (Auto) 19.3 L (25-40) % [place] % (Auto) 7.4 (3-14) % Eos % (Auto) 3.7 (2-4) % Baso % (Auto) 0.8 (0-2) % Neut # (Auto) 5600 (2939-9651) /uL Lymph # (Auto) 1600 (2079-4245) /uL [place] # (Auto) 600 (0-900) /uL Eos # (Auto) 300 (0-450) /uL Baso # (Auto) 100 (0-100) /uL APTT 51 H D (26.4-36.2) SECONDS D-Dimer (<230) ng/mL VBG pH (7.33-7.43) VBG pCO2 (45-50) mmHg VBG pO2 (35-45) mmHg VBG HCO3 (23-28) mmol/L VBG Total CO2 (24-29) mmol/L VBG O2 Saturation (70-75) % VBG Base Excess (0-4) mmol/L Sodium 135 L (137-145) mmol/L Potassium 4.3 (3.4-5.1) mmol/L Chloride 104 (98-107) mmol/L Carbon Dioxide 24 (22-32) mmol/L BUN 12 (9-20) mg/dL Creatinine 1.18 (0.66-1.25) mg/dL Estimated GFR > 60 (>60) mL/min BUN/Creatinine Ratio 10.2 (6-22) Glucose 239 H (80-110) mg/dL Lactate (0.7-2.1) mmol/L Calcium 8.5 (8.4-10.2) mg/dL Total Bilirubin 1.1 (0.2-1.3) mg/dL AST 46 (17-59) IU/L ALT 26 (<50) IU/L Alkaline Phosphatase 113 (38-126) U/L Total Creatine Kinase (55-170) U/L CK-MB (CK-2) (<2.37) ng/mL CK-MB (CK-2) Rel Index (1.5-5.0) % Troponin I (0.01-0.034) ng/mL NT-Pro-B Natriuret Pep (<450) pg/mL Total Protein 7.4 (6.3-8.2) g/dL Albumin 4.0 (3.5-5.0) g/dL Globulin 3.4 (1.7-4.1) g/dL Albumin/Globulin Ratio 1.2 (1.0-2.8) Urine RBC (0-5/HPF) Urine WBC (0-5/HPF) Ur Squamous Epith Cells (0-5/HPF) Ur Transition Epith Cell (0-5/HPF) Ur Renal Epithelial Cell (0-1/HPF) Amorphous Sediment Urine Bacteria (None) Hyaline Casts (None) Granular Casts (None) Ur Culture Indicated? Ketones (<0.27) mmol/L SARS-CoV-2 (PCR) (Negative) Point of Care Testing Glucose POC 403 Urine Dip Bedside Urine Glucose 1000 mg/dl Bedside Urine Bilirubin - Negative Bedside Urine Ketone - Negative Urine Specific [place] 1.030 Bedside Urine Occult Blood + Bedside Urine pH 5.5 Bedside Urine Protein +++ 300 Bedside Urine Urobilinogen - Negative Bedside Urine Nitrite - Negative Bedside Urine Leukocytes - Negative Esterase Point of care testing: Point of Care Testing Glucose POC 403 Urine Dip Bedside Urine Glucose 1000 mg/dl Bedside Urine Bilirubin - Negative Bedside Urine Ketone - Negative Urine Specific [place] 1.030 Bedside Urine Occult Blood + Bedside Urine pH 5.5 Bedside Urine Protein +++ 300 Bedside Urine Urobilinogen - Negative Bedside Urine Nitrite - Negative Bedside Urine Leukocytes - Negative Esterase Imaging Data echo: Radiologist's Impression: Echocardiography Report Signed Patient: Ted Baldwin MR#: [id number] : 1945 Acct:[id number] Age/Sex: 76 / M Date of Service: 12/19/21 Loc: ED Accession Number: [id number] ?? Procedure: EC echo doppler complete Ordering Provider: Calos Knutson D.O. ? [facility] +---------+ : ? :? [address] . ? : ? : : ? :? [place], [place] ? : ? : : ? :? [address] ? : ? : : ? : ? Phone: [phone]? : ? : [phone]? [phone]? +---------+ ? Echocardiogram Report + + :Name: CHUY TED Shaw? ? Study Date: 12/20/2021 ? Height: 72 in? : :Hospital ? ReadingLocation: ? Weight: 270 lb : : ? Gender: Male ? BSA: 2.4 m2? ? : :: 1945? Age: 76 yrs? BP: 181/80 mmHg: :Reason For Study: NSTEMI ? : :Ordering Physician: EAMON,? : :CALOS ? Performed By: Floyd Sutton ? : :Referring: CALOS KNUTSON? : + + Interpretation Summary The left ventricle is normal in size. There is moderate concentric left ventricular hypertrophy. Left ventricular systolic function is normal. The ejection fraction is estimated to be 55-60%. There are no obvious focal wall motion abnormalities noted but poor endocardial definition reduces the sensitivity for the detection of such. Diastolic parameters suggest a relaxation abnormality of the left ventricle, consistent with probable normal filling pressures. ? The right ventricle is normal in size and function. Pulmonary artery pressures cannot be estimated because of the lack of a measurable TR jet velocity. ? Both atria are normal in size. ? 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 The prosthetic aortic valve is well-seated. There is probable normal prosthetic aortic valve function. ? There is no other significant valvular heart disease. ? Procedure: ? A two-dimensional transthoracic echocardiogram with color flow and Doppler was performed. The study quality was technically adequate. There is no prior echocardiogram noted for this patient. The patient was in normal sinus rhythm during the exam. Left Ventricle: ? The left ventricle is normal in size. There is moderate concentric left ventricular hypertrophy. Left ventricular systolic function is normal. The ejection fraction is estimated to be 55-60%. There are no obvious focal wall motion abnormalities noted but poor endocardial definition reduces the sensitivity for the detection of such. Diastolic parameters suggest a relaxation abnormality of the left ventricle, consistent with probable normal filling pressures. Right Ventricle: ? The right ventricle is normal in size and function. Atria: ? Both atria are normal in size. The interatrial septum grossly appears intact with no obvious evidence for an atrial septal defect. Mitral Valve: ? There is mild mitral annular calcification. There is trace mitral regurgitation. Aortic Valve: ? 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 The prosthetic aortic valve is well-seated. There is probable normal prosthetic aortic valve function. No aortic regurgitation is present. Tricuspid Valve: ? The tricuspid valve is not well visualized, but is grossly normal. No tricuspid regurgitation. Pulmonary artery pressures cannot be estimated because of the lack of a measurable TR jet velocity. Pulmonic Valve: ? The pulmonic valve is normal in structure and function. There is no pulmonic valvular regurgitation. There is no other significant valvular heart disease. Great Vessels: ? The aortic root is not well visualized. The ascending aorta could not be visualized. The IVC is of normal diameter and collapses greater than 50% with a sniff. This suggests a low right atrial pressure of 3 mm Hg. Pericardium/ Pleura ? There is no pericardial effusion. There is no pleural effusion. ? MMode/2D Measurements & Calculations LVIDd: 5.1 cm? LA A2 area: 16.4 cm2 LVIDs: 3.8 cm? LA A4 area: 21.1 cm2 FS: 25.9 % ? LA length (vol): 5.8 cm IVSd: 1.5 cm ? LA vol: 50.6 ml LVPWd: 1.5 cm? LA vol index: 20.9 ml/m2 LV velazco. diameter/BSA (cm/m^2): 2.1 LV sys. diameter/BSA (cm/m^2): 1.6 ? RA long axis: 4.9 cm ? TAPSE: 2.5 cm RA area: 15.2 cm2 RA vol: 39.8 ml RA : 16.5 ml/m2 ? Doppler Measurements & Calculations Ao V2 max: 250.2 cm/sec? LVOT Max Thomas: 86.8 cm/sec Ao V2 mean: 172.0 cm/sec ? LV V1 max P.0 mmHg Ao max P.0 mmHg ? LV V1 VTI: 19.5 cm Ao mean P.7 mmHg? sev ratio: 0.37 Ao V2 VTI: 52.4 cm ? MV E max thomas: 66.1 cm/sec MV A max thomas: 82.1 cm/sec MV E/A: 0.80 Med Peak E' Thomas: 4.6 cm/sec E/E' med: 14.4 Lat Peak E' Thomas: 5.7 cm/sec E/E' lat: 11.5 E/e' average: 12.9 MV dec time: 0.32 sec ? Reading Physician:01:26 PM ECG Data Interpretation: [1704] EKG is normal sinus rhythm rate [62] and free of any signs of ischemia or ectopy. No ST segmental elevation or depression. No T wave inversions D 2. Sinus rhythm rate 94 no ischemic changes EKG#3 sinus bradycardia rate 62 DE interval 190 QRS 90 QTC 458 no ischemic changes MDM Narrative Medical decision making narrative: Patient continues to rest comfortably, no pain, he had of brief, 9 run beat of V-tach hours ago without symptoms and no recurrence. Troponins remained stable and he is continued on heparin ip. [facility] was quite hopeful they could obtain a bed, however they recommend calling back after blade changer in the morning. 12/19/21 Mank: [id number]: Patient was signed out to myself by Dr. Brown. Patient had a hyperosmolar state was at [facility] in [place]. He did have a negative troponin reportedly at that time left Against Medical Advice as he was feeling better. He has a known cardiac history cardiac stents placed he believes and 1980s in another state. Patient does not recall exactly where. He has been off his medications including his anticoagulants, insulin, thyroid and antihypertensives for 3-4 weeks. Patient states that he developed exertional dyspnea about 2 or 3 days ago after he left [facility]. He states he was exercising 3 times a week with minimal issues before then. Patient does not have any active chest pain or pressure with these episodes he only has shortness of breath. He had does not have any currently. Denies fevers, chills, no nausea or vomiting, no other GI or urinary symptoms. Has not had any swelling in his extremities. Patient labs show positive troponin that is somewhat trending down words although up and down. His renal function appears to be stable range. Sodium was 134 glucose has been in the to 80s, he is has anemia. COVID is negative. Chest x-ray shows some mild pulmonary edema. Aspirin, heparin and beta-ramu were initiated and have been continued. We are currently seeking placement at a facility that has cardiology in house and potential for cardiac catheterization. Was noted to have 9 beats of V-tach overnight but no additional episodes so far. Patient was asymptomatic during that episode. I did speak with Cardiology from [facility] they recommend current plan so far. Patient is on regional hotline to seek a bed placement. 12/20/21 830 am Patient signed out to me by Dr. Quesada. 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 Troponi ns are now trending downward. Unfortunately echocardiogram did not get done yesterday. Patient did have a run of V-tach at some point. 0820 Dr. Arriaga, on-call Cardiology updated patient's symptoms test results does recommended cardiac catheterization however there is critical bed shortage the patient within the emergency department now for 38 hours. Unlikely to get a bed today. He agrees with keeping patient here at this hospital with stress test and close monitoring. I have seen and evaluated patient myself. He just got done ambulating the resting he has no chest pain or shortness of breath. Overall feeling better. No complaints. Morning labs are pending. GENERAL: Alert pleasant 76-year-old male HEENT: Head atraumatic,EOMI, pupils reactive, face symmetric, moist mucous membranes CARDIOVASCULAR: Regular rate and rhythm without murmurs, rubs or gallops. RESPIRATORY: Breath sounds equal bilaterally, no wheezes rales or rhonchi. EXTREMITIES: Normal range of motion, no clubbing or edema. Neurovascularly intact NEUROLOGICAL: Alert and oriented x4. SKIN: Warm, dry, no laceration, no petechiae, no rashes or lesions. A/P 1. NSTEMI -troponin trend downward -echo today -continue heparin drip -beta-ramu -Call into [facility] for possible placement 2. DM -tight glucose control 3. 1230 Dr. barrett, cardiology agrees 1235 Dr. Han, hospitalist accepts Discharge Plan Departure Patient Disposition: [facility] Clinical Impression: Non-ST elevation AR (NSTEMI) Prescriptions: No Action insulin NPH isoph U-100 human 100 unit/mL Cartridge 48 unit SUBCUT BEDTIME levothyroxine 200 mcg tablet 200 mcg PO DAILY gabapentin 300 mg capsule 300 mg PO DAILY omeprazole 20 mg capsule,delayed release(DR/EC) 20 mg PO DAILY Xarelto 20 mg tablet 20 mg PO QPM Rx Instructions: must administer with evening meal triamcinolone acetonide 0.1 % cream 1 applic topical BID fluticasone propionate 50 mcg/actuation spray,suspension 1 spray intranasal DAILY Rx Instructions: administer into each nostril furosemide 20 mg tablet 20 mg PO DAILY Humulin N NPH U-100 Insulin 100 unit/mL suspension 32 unit SUBCUT QAM Rx Instructions: 32 units subcut Q AM then 48 units QPM. latanoprost 0.005 % drops 1 drp EYE-BOTH DAILY allopurinol 100 mg tablet 100 mg PO DAILY amlodipine 5 mg tablet 5 mg PO DAILY clopidogrel 75 mg tablet 75 mg PO DAILY duloxetine 30 mg capsule,delayed release(DR/EC) 30 mg PO BID Referrals: Lupe Christianson PA-C [Primary Care Provider] -
[2021-12-18] MEDS: METOPROLOL IR 25 MG TABLET PO (20:04)
[2021-12-18] MEDS: ASPIRIN 81 MG CHEW TAB 324 MG PO (20:04)
[2021-12-18] MEDS: ATORVASTATIN 20 MG TABLET 80 MG PO (20:04)
[2021-12-18 20:11] LABS: Bacteria Urine Occasional (0-1); RBC Urine 1-5/HPF (0-5/HPF); Renal Epithelial Cells Urine 0-1/HPF (0-1/HPF); Transitional Epi Cells Urine 0-1/HPF (0-5/HPF); WBC Urine 1-5/HPF (0-5/HPF)
[2021-12-18 20:12] LABS: Amorphous Sediment Urine 1+; Culture Indicated Urine Cult Not Indicated; Granular Casts Urine 1-5/LPF; Hyaline Casts Urine 5-10/LPF; Squamous Epithelial Cell Urine 1-5 /HPF (0-5/HPF)
[2021-12-18 21:12] LABS: Creatine Kinase 109 U/L (55-170)
[2021-12-18 21:27] LABS: Troponin I 0.227 ng/mL (0.01-0.034)
[2021-12-18 21:28] LABS: CKMB % Relative Index 1.3 % (1.5-5.0); Creatine Kinase MB 1.45 ng/mL (<2.37)
[2021-12-19] VITALS (62 sets, daily range): BP systolic 125–207; BP diastolic 58–123; PULSE 53–175; RESP 11–42; O2SAT 86–98
[2021-12-19 00:33] LABS: PTT Partial Thromboplastin Tim 47 SECONDS (26.4-36.2)
[2021-12-19 04:07] LABS: Creatine Kinase 119 U/L (55-170)
[2021-12-19 04:23] LABS: CKMB % Relative Index 1.3 % (1.5-5.0); Creatine Kinase MB 1.55 ng/mL (<2.37)
[2021-12-19 04:24] LABS: Troponin I 0.247 ng/mL (0.01-0.034)
[2021-12-19 06:42] LABS: PTT Partial Thromboplastin Tim 47 SECONDS (26.4-36.2)
[2021-12-19 10:17] LABS: Hematocrit 33.5 % (41-53); Hemoglobin 11.7 g/dL (13.5-17.5)
[2021-12-19 10:31] LABS: BUN Creatinine Ratio 10.2 (6-22); Blood Urea Nitrogen 13 mg/dL (9-20); Carbon Dioxide 23 mmol/L (22-32); Chloride 103 mmol/L (98-107); Estimated Glomerular Filt Rate 59 mL/min (>60); Glucose 282 mg/dL (80-110); HEMOLYSIS < 15 (0-50); Potassium 3.9 mmol/L (3.4-5.1); Sodium 134 mmol/L (137-145)
[2021-12-19 10:46] LABS: Troponin I 0.185 ng/mL (0.01-0.034)
[2021-12-19 14:01] LABS: PTT Partial Thromboplastin Tim 46 SECONDS (26.4-36.2)
[2021-12-19] MEDS: INSULIN LISPRO 100 UNIT/ML 3ML VIAL SUBCUT ×2 (17:34→22:37)
--- NOTE | 2021-12-19 18:23 | DI.ECHO.S_ITS ---
[facility] +[facility] : : [address] : [place] : : : : [id number] : : : : Phone: [phone] : [phone] +---------+ Echocardiogram Report + + :Name: TOPHER VERA Study Date: 12/20/2021 Height: 72 in : :[facility] ReadingLocation: Weight: 270 lb : : Gender: Male BSA: 2.4 m2 : :: 1945 Age: 76 yrs BP: 181/80 mmHg: :Reason For Study: NSTEMI : :Ordering Physician: EAMON, : :CALOS Performed By: Floyd Sutton : :Referring: CALOS KNUTSON : + + Interpretation Summary The left ventricle is normal in size. There is moderate concentric left ventricular hypertrophy. Left ventricular systolic function is normal. The ejection fraction is estimated to be 55-60%. There are no obvious focal wall motion abnormalities noted but poor endocardial definition reduces the sensitivity for the detection of such. Diastolic parameters suggest a relaxation abnormality of the left ventricle, consistent with probable normal filling pressures. The right ventricle is normal in size and function. Pulmonary artery pressures cannot be estimated because of the lack of a measurable TR jet velocity. Both atria are normal in size. 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 The prosthetic aortic valve is well-seated. There is probable normal prosthetic aortic valve function. There is no other significant valvular heart disease. Procedure: A two-dimensional transthoracic echocardiogram with color flow and Doppler was performed. The study quality was technically adequate. There is no prior echocardiogram noted for this patient. The patient was in normal sinus rhythm during the exam. Left Ventricle: The left ventricle is normal in size. There is moderate concentric left ventricular hypertrophy. Left ventricular systolic function is normal. The ejection fraction is estimated to be 55-60%. There are no obvious focal wall motion abnormalities noted but poor endocardial definition reduces the sensitivity for the detection of such. Diastolic parameters suggest a relaxation abnormality of the left ventricle, consistent with probable normal filling pressures. Right Ventricle: The right ventricle is normal in size and function. Atria: Both atria are normal in size. The interatrial septum grossly appears intact with no obvious evidence for an atrial septal defect. Mitral Valve: There is mild mitral annular calcification. There is trace mitral regurgitation. 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 The prosthetic aortic valve is well-seated. There is probable normal prosthetic aortic valve function. No aortic regurgitation is present. Tricuspid Valve: The tricuspid valve is not well visualized, but is grossly normal. No tricuspid regurgitation. Pulmonary artery pressures cannot be estimated because of the lack of a measurable TR jet velocity. Pulmonic Valve: The pulmonic valve is normal in structure and function. There is no pulmonic valvular regurgitation. There is no other significant valvular heart disease. Great Vessels: The aortic root is not well visualized. The ascending aorta could not be visualized. The IVC is of normal diameter and collapses greater than 50% with a sniff. This suggests a low right atrial pressure of 3 mm Hg. Pericardium/ Pleura There is no pericardial effusion. There is no pleural effusion. MMode/2D Measurements & Calculations LVIDd: 5.1 cm LA A2 area: 16.4 cm2 LVIDs: 3.8 cm LA A4 area: 21.1 cm2 FS: 25.9 % LA length (vol): 5.8 cm IVSd: 1.5 cm LA vol: 50.6 ml LVPWd: 1.5 cm LA vol index: 20.9 ml/m2 LV velazco. diameter/BSA (cm/m^2): 2.1 LV sys. diameter/BSA (cm/m^2): 1.6 RA long axis: 4.9 cm TAPSE: 2.5 cm RA area: 15.2 cm2 RA vol: 39.8 ml RA : 16.5 ml/m2 Doppler Measurements & Calculations Ao V2 max: 250.2 cm/sec LVOT Max Thomas: 86.8 cm/sec Ao V2 mean: 172.0 cm/sec LV V1 max P.0 mmHg Ao max P.0 mmHg LV V1 VTI: 19.5 cm Ao mean P.7 mmHg sev ratio: 0.37 Ao V2 VTI: 52.4 cm MV E max thomas: 66.1 cm/sec MV A max thomas: 82.1 cm/sec MV E/A: 0.80 Med Peak E' Thomas: 4.6 cm/sec E/E' med: 14.4 Lat Peak E' Thomas: 5.7 cm/sec E/E' lat: 11.5 E/e' average: 12.9 MV dec time: 0.32 sec Reading Physician:01:26 PM
[2021-12-19] MEDS: HEPARIN DRIP 25,000 UNIT/500 ML IV.SOLN 23 UNIT IV (18:27)
[2021-12-19 19:59] LABS: Troponin I 0.173 ng/mL (0.01-0.034)
[2021-12-19 20:38] LABS: PTT Partial Thromboplastin Tim 42 SECONDS (26.4-36.2)
[2021-12-19] MEDS: METOPROLOL IR 25 MG TABLET PO (22:36)
[2021-12-20] VITALS (35 sets, daily range): BP systolic 132–181; BP diastolic 61–105; PULSE 48–90; RESP 5–33; TEMP 36.9; O2SAT 92–98
--- NOTE | 2021-12-20 06:10 | PC.NURSE ---
[facility] called this morning to report that pt is on waitlists with no ETA for bed availability.
[2021-12-20 08:40] LABS: Add Manual Diff / Slide Review NO; Basophils Absolute Auto 100 /uL (0-100); Basophils Percent Auto 0.8 % (0-2); Eosinophils Absolute Auto 300 /uL (0-450); Eosinophils Percent Auto 3.7 % (2-4); Hematocrit 39.1 % (41-53); Hemoglobin 13.4 g/dL (13.5-17.5); Lymphocytes Absolute Auto 1600 /uL (1100-4500); Lymphocytes Percent Auto 19.3 % (25-40); Mean Corpuscular HGB Conc 34.3 % (30-36); Mean Corpuscular Hemoglobin 29.1 PG (26-34); Mean Corpuscular Volume 84.8 fL (80-100); Monocytes Absolute Auto 600 /uL (0-900); Monocytes Percent Auto 7.4 % (3-14); Neutrophils Absolute Auto 5600 /uL (1500-7000); Neutrophils Percent Auto 68.8 % (50-75); Platelet Count 168 X10^3/uL (150-400); Red Blood Cell Count 4.61 X10^6/uL (4.5-5.9); Red Cell Distribution Width 15.6 % (11.6-14.8); White Blood Cell Count 8.1 X10^3/uL (4.5-11.0)
[2021-12-20 08:51] LABS: Alanine Aminotransferase 26 IU/L (<50); Albumin Globulin Ratio 1.2 (1.0-2.8); Alkaline Phosphatase 113 U/L (38-126); Aspartate Aminotransferase 46 IU/L (17-59); BUN Creatinine Ratio 10.2 (6-22); Bilirubin Total 1.1 mg/dL (0.2-1.3); Blood Urea Nitrogen 12 mg/dL (9-20); Calcium 8.5 mg/dL (8.4-10.2); Carbon Dioxide 24 mmol/L (22-32); Chloride 104 mmol/L (98-107); Estimated Glomerular Filt Rate > 60 mL/min (>60); Globulin 3.4 g/dL (1.7-4.1); Glucose 239 mg/dL (80-110); Sodium 135 mmol/L (137-145); Total Protein 7.4 g/dL (6.3-8.2)
[2021-12-20 08:55] LABS: HEMOLYSIS 131 (0-50)
[2021-12-20 08:58] LABS: Potassium 4.3 mmol/L (3.4-5.1)
[2021-12-20 09:25] LABS: PTT Partial Thromboplastin Tim 51 SECONDS (26.4-36.2)
[2021-12-20] MEDS: INSULIN LISPRO 100 UNIT/ML 3ML VIAL SUBCUT ×2 (10:36→13:59)
[2021-12-20] MEDS: METOPROLOL IR 25 MG TABLET PO (10:53)
--- NOTE | 2021-12-20 13:25 | PC.NURSE ---
Pt accepted under care of Dr. aHn to [facility], [facility] ETA 1430. Transfer Center updated.
== END 2021-12-20 15:21 | disposition short-term general hospital (02) ==
PROVIDERS: Emergency Medicine; Emergency Provider Emergency Medicine; PCP Physician Assistant
DX: I21.4 Non-ST elevation (NSTEMI) myocardial infarction (principal); J81.1 Chronic pulmonary edema; Z20.822 Contact with and (suspected) exposure to COVID-19
CPT/HCPCS: 36415; 71045; 80048; 80053; 81003; 81015; 82009; 82550; 82553; 82805; 82962; 83605; 83880; 84484; 85014; 85018; 85025; 85379; 85730; 87040; 87635; 93005; 93306; 96365; 96366; 96372; 96375; 99284; C9803; J1644; J1815

== ENCOUNTER → 2022-05-06 11:39 | Outpatient (CLI) | payer MEDICARE, SELFPAY ==
[2022-05-06 20:45] LABS: Add Manual Diff / Slide Review NO; Basophils Absolute Auto 100 /uL (0-100); Basophils Percent Auto 0.5 % (0-2); Eosinophils Absolute Auto 100 /uL (0-450); Eosinophils Percent Auto 0.9 % (2-4); Hemoglobin 11.2 g/dL (13.5-17.5); Lymphocytes Absolute Auto 1000 /uL (1100-4500); Lymphocytes Percent Auto 8.6 % (25-40); Mean Corpuscular HGB Conc 33.1 % (30-36); Mean Corpuscular Hemoglobin 30.6 PG (26-34); Mean Corpuscular Volume 92.5 fL (80-100); Monocytes Absolute Auto 900 /uL (0-900); Monocytes Percent Auto 8.2 % (3-14); Neutrophils Absolute Auto 9200 /uL (1500-7000); Neutrophils Percent Auto 81.8 % (50-75); Platelet Count 176 X10^3/uL (150-400); Red Blood Cell Count 3.67 X10^6/uL (4.5-5.9); Red Cell Distribution Width 14.8 % (11.6-14.8); White Blood Cell Count 11.2 X10^3/uL (4.5-11.0)
[2022-05-06 20:51] LABS: Alanine Aminotransferase 26 IU/L (<50); Albumin 4.1 g/dL (3.5-5.0); Albumin Globulin Ratio 1.4 (1.0-2.8); Alkaline Phosphatase 106 U/L (38-126); Aspartate Aminotransferase 21 IU/L (17-59); BUN Creatinine Ratio 19.7 (6-22); Bilirubin Total 0.9 mg/dL (0.2-1.3); Blood Urea Nitrogen 30 mg/dL (9-20); Carbon Dioxide 23 mmol/L (22-32); Chloride 104 mmol/L (98-107); Estimated Glomerular Filt Rate 47 mL/min (>60); Glucose 199 mg/dL (80-110); HEMOLYSIS < 15 (0-50); Potassium 4.1 mmol/L (3.4-5.1); Sodium 136 mmol/L (137-145); Total Protein 7.1 g/dL (6.3-8.2)
[2022-05-06 20:58] LABS: NT-proBNP (BNP-Adult 18+) 1450 pg/mL (<450)
== END ==
PROVIDERS: PCP Family Medicine; Visit Provider Physician Assistant Medical
DX: R05.9 Cough, unspecified (principal)
CPT/HCPCS: 80053; 83880; 85025

== ENCOUNTER → 2022-08-24 08:07 | Outpatient (CLI) | payer MEDICARE, SELFPAY ==
[2022-08-24 19:51] LABS: Add Manual Diff / Slide Review NO; Basophils Absolute Auto 0 /uL (0-100); Basophils Percent Auto 0.5 % (0-2); Eosinophils Absolute Auto 400 /uL (0-450); Hematocrit 35.9 % (41-53); Hemoglobin 12.3 g/dL (13.5-17.5); Lymphocytes Absolute Auto 1200 /uL (1100-4500); Lymphocytes Percent Auto 13.9 % (25-40); Mean Corpuscular HGB Conc 34.3 % (30-36); Mean Corpuscular Hemoglobin 32.8 PG (26-34); Mean Corpuscular Volume 95.6 fL (80-100); Monocytes Absolute Auto 600 /uL (0-900); Monocytes Percent Auto 6.9 % (3-14); Neutrophils Absolute Auto 6200 /uL (1500-7000); Neutrophils Percent Auto 73.7 % (50-75); Platelet Count 150 X10^3/uL (150-400); Red Blood Cell Count 3.76 X10^6/uL (4.5-5.9); Red Cell Distribution Width 14.2 % (11.6-14.8); White Blood Cell Count 8.4 X10^3/uL (4.5-11.0)
[2022-08-24 19:57] LABS: Alanine Aminotransferase 35 IU/L (<50); Albumin Globulin Ratio 1.4 (1.0-2.8); Alkaline Phosphatase 137 U/L (38-126); Aspartate Aminotransferase 31 IU/L (17-59); BUN Creatinine Ratio 24.7 (6-22); Bilirubin Total 0.6 mg/dL (0.2-1.3); Blood Urea Nitrogen 44 mg/dL (9-20); Carbon Dioxide 24 mmol/L (22-32); Chloride 101 mmol/L (98-107); Estimated Glomerular Filt Rate 39 mL/min (>60); Globulin 2.8 g/dL (1.7-4.1); Glucose 364 mg/dL (80-110); HEMOLYSIS < 15 (0-50); Potassium 5.1 mmol/L (3.4-5.1); Sodium 135 mmol/L (137-145); Total Protein 6.8 g/dL (6.3-8.2)
[2022-08-24 20:05] LABS: Cholesterol 277 mg/dL (140-199); HDL Cholesterol 50 mg/dL (40-60); Triglycerides 484 mg/dL (35-150)
[2022-08-24 20:06] LABS: NT-proBNP (BNP-Adult 18+) 181 pg/mL (<450)
[2022-08-24 20:34] LABS: Creatinine Urine Random 35.2 mg/dL
[2022-08-24 20:54] LABS: Free T4, Direct Thyroxine 0.37 ng/dL (0.78-2.19); Microalbumi Creatinin Ratio Ur 2718.7 ug/mg CR (<30); Microalbumin Urine Random 95.7 mg/dL (0-1.6); Vitamin B12 389 pg/mL (239-931)
[2022-08-26 15:36] LABS: x Labcorp Estim. Avg Glu (eAG) 237 mg/dL (.); x Labcorp Hemoglobin A1c 9.9 % (4.8-5.6)
== END ==
PROVIDERS: PCP Family Medicine; Visit Provider Family Medicine
DX: E11.42 Type 2 diabetes mellitus with diabetic polyneuropathy (principal); E78.2 Mixed hyperlipidemia; E89.0 Postprocedural hypothyroidism; E87.1 Hypo-osmolality and hyponatremia; J18.9 Pneumonia, unspecified organism; J81.0 Acute pulmonary edema; R05.2 Subacute cough
CPT/HCPCS: 80053; 80061; 82043; 82570; 82607; 83036; 83880; 84439; 84443; 85025

== ENCOUNTER → 2022-11-03 16:33 | Outpatient (CLI) | payer MEDICARE, SELFPAY | PROVIDERS: PCP Family Medicine; Visit Provider Family Medicine | DX: F10.90 Alcohol use, unspecified, uncomplicated (principal) | CPT/HCPCS: 80320; G0480 ==

== ENCOUNTER → 2022-11-08 12:00 | Outpatient (CLI) | payer MEDICARE, SELFPAY ==
[2022-11-08 20:22] LABS: BUN Creatinine Ratio 14.1 (6-22); Blood Urea Nitrogen 30 mg/dL (9-20); Calcium 9.7 mg/dL (8.4-10.2); Carbon Dioxide 25 mmol/L (22-32); Chloride 100 mmol/L (98-107); Cholesterol 230 mg/dL (140-199); Estimated Glomerular Filt Rate 31 mL/min (>60); Glucose 135 mg/dL (80-110); HDL Cholesterol 53 mg/dL (40-60); HEMOLYSIS < 15 (0-50); LDL Cholesterol Calculated 137 mg/dL (<100); Potassium 4.7 mmol/L (3.4-5.1); Sodium 133 mmol/L (137-145); Triglycerides 198 mg/dL (35-150)
[2022-11-08 20:37] LABS: Free T4, Direct Thyroxine < 0.07 ng/dL (0.78-2.19)
[2022-11-09 22:27] LABS: x Labcorp Estim. Avg Glu (eAG) 177 mg/dL (.); x Labcorp Hemoglobin A1c 7.8 % (4.8-5.6)
== END ==
PROVIDERS: PCP Family Medicine; Visit Provider Family Medicine
DX: E11.9 Type 2 diabetes mellitus without complications (principal); E78.2 Mixed hyperlipidemia; I10 Essential (primary) hypertension; N18.9 Chronic kidney disease, unspecified
CPT/HCPCS: 80048; 80061; 83036; 84439; 84443

== ENCOUNTER 2023-01-07 22:33 | Emergency (ER) | payer MEDICARE, SELFPAY ==
[2023-01-07 22:48] VITALS: BP 151/81; PULSE 55; RESP 18; O2SAT 98; BMI 32.5
--- NOTE | 2023-01-07 22:53 | DI.RAD.S_ITS ---
PROCEDURE: XR CHEST 1V INDICATIONS: chest pain TECHNIQUE: One view of the chest was acquired. COMPARISON: [facility] ([place]), CR, XR CHEST 2V, 05/06/2022, 11:15. FINDINGS: Surgical changes and devices: None. Lungs and pleura: Lungs are clear. No pleural effusions or pneumothorax. Mediastinum: Mediastinal contours appear normal. Heart size is normal. Bones and chest wall: No suspicious bony lesions. Overlying soft tissues appear unremarkable. IMPRESSION: 1. No acute cardiopulmonary disease. Dictated by: Cornelius Diaz M.D. on 01/08/2023 at 1:15 Approved by: Cornelius Diaz M.D. on 01/08/2023 at 1:15
[2023-01-07 23:15] VITALS: TEMP 36.5
[2023-01-07 23:23] LABS: Add Manual Diff / Slide Review NO; Basophils Absolute Auto 100 /uL (0-100); Basophils Percent Auto 1.3 % (0-2); Eosinophils Absolute Auto 300 /uL (0-450); Eosinophils Percent Auto 3.9 % (2-4); Hematocrit 33.2 % (41-53); Hemoglobin 11.5 g/dL (13.5-17.5); Lymphocytes Absolute Auto 1900 /uL (1100-4500); Lymphocytes Percent Auto 27.8 % (25-40); Mean Corpuscular HGB Conc 34.7 % (30-36); Mean Corpuscular Hemoglobin 33.5 PG (26-34); Mean Corpuscular Volume 96.7 fL (80-100); Monocytes Absolute Auto 500 /uL (0-900); Monocytes Percent Auto 7.4 % (3-14); Neutrophils Absolute Auto 4100 /uL (1500-7000); Neutrophils Percent Auto 59.6 % (50-75); Platelet Count 183 X10^3/uL (150-400); Red Blood Cell Count 3.43 X10^6/uL (4.5-5.9); Red Cell Distribution Width 15.6 % (11.6-14.8); White Blood Cell Count 6.9 X10^3/uL (4.5-11.0)
[2023-01-07 23:32] LABS: Alanine Aminotransferase 40 IU/L (<50); Albumin Globulin Ratio 1.3 (1.0-2.8); Alkaline Phosphatase 105 U/L (38-126); Aspartate Aminotransferase 40 IU/L (17-59); BUN Creatinine Ratio 13.3 (6-22); Bilirubin Total 0.7 mg/dL (0.2-1.3); Blood Urea Nitrogen 24 mg/dL (9-20); Calcium 9.2 mg/dL (8.4-10.2); Carbon Dioxide 22 mmol/L (22-32); Chloride 107 mmol/L (98-107); Creatine Kinase 215 U/L (55-170); Estimated Glomerular Filt Rate 38 mL/min (>60); Globulin 3.1 g/dL (1.7-4.1); Glucose 144 mg/dL (80-110); HEMOLYSIS 27 (0-50); Lipase 320 U/L (23-300); Potassium 4.2 mmol/L (3.4-5.1); Sodium 135 mmol/L (137-145); Total Protein 7.1 g/dL (6.3-8.2)
[2023-01-07 23:44] LABS: NT-proBNP (BNP-Adult 18+) 222 pg/mL (<450); Troponin I < 0.012 ng/mL (0.01-0.034)
[2023-01-08] VITALS (15 sets, daily range): BP systolic 140–179; BP diastolic 65–89; PULSE 48–59; RESP 16–20; O2SAT 93–98
[2023-01-08] MEDS: SODIUM CHLORIDE 0.9% 1,000 ML 150 ML IV (00:33)
--- NOTE | 2023-01-08 00:33 | ED_ITS ---
HPI - Chest Pain General Chief Complaint: Chest Pain Stated Complaint: Chest pain Time Seen by Provider: 01/07/23 22:40 Source: patient Mode of arrival: Wheelchair History of Present Illness HPI narrative: 77-year-old male with history of hypertension, prior DVTs on anticoagulation presents with his for evaluation of chest and abdominal pain. On Tuesday he was walking at home, got his feet caught up and tripped and fell with his arms folded across his chest. He initially felt some pain in his chest which is somewhat better than in the immediate aftermath. This pain is worse with taking a deep breath and with motion. He denies any head or neck pain or injury. He is had increasing lower abdominal pain since the fall. He would seen his primary care provider who had some concerns about chest x-ray and had encouraged him to present here a few days ago but today is the 1st day that he was able to arrive. He denies any dysuria, frequency or urgency. He denies any blood in his urine Related Data Home Medications Medication Instructions Recorded Confirmed duloxetine 30 mg capsule,delayed 30 mg PO BID 10/12/21 01/03/23 release rivaroxaban 20 mg tablet (Xarelto) 20 mg PO QPM 10/12/21 01/03/23 aspirin 81 mg tablet,delayed 81 mg PO QAM 04/28/22 01/03/23 release (Adult Low Dose Aspirin) furosemide 20 mg tablet 20 mg PO QPM 04/28/22 01/03/23 latanoprost 0.005 % eye drops 1 drp EYE-BOTH QPM 04/28/22 01/03/23 Previous Rx's Medication Instructions Recorded doxycycline hyclate 100 mg tablet 100 mg PO BID #20 tabs 05/06/22 levothyroxine 200 mcg tablet 200 mcg PO QPM #30 tabs 08/18/22 ezetimibe 10 mg tablet (Zetia) 10 mg PO DAILY #90 tabs 10/28/22 losartan 100 mg tablet 100 mg PO DAILY #90 tabs 10/28/22 rosuvastatin 40 mg tablet (Crestor) 40 mg PO DAILY #90 tabs 10/28/22 trazodone 50 mg tablet 50 mg PO BEDTIME PRN insomnia #60 10/28/22 tabs dulaglutide 0.75 mg/0.5 mL 3 mg (2 mL) SUBCUT QWEEK diabetes 11/11/22 subcutaneous pen injector #2 mL allopurinol 100 mg tablet 100 mg PO QPM #90 tabs 11/17/22 amlodipine 5 mg tablet 5 mg PO QPM #90 tabs 11/17/22 omeprazole 20 mg capsule,delayed 20 mg PO DAILY #90 caps 11/17/22 release tramadol 50 mg tablet 50 mg PO Q8H PRN pain #84 tabs 11/22/22 gabapentin 300 mg capsule See Rx Instructions PO DAILY #240 12/06/22 caps hydrocodone 5 mg-acetaminophen 325 1 tab PO Q4-6H PRN pain #10 tabs 01/08/23 mg tablet Allergies Allergy/AdvReac Type Severity Reaction Status Date / Time Sulfa (Sulfonamide Allergy Intermediate Hives Verified 01/03/23 13:58 Antibiotics) Review of Systems Review of Systems Narrative: GENERAL: Denies chills, fatigue, malaise, fever, sweats. HEENT: Denies sinus pain, ear pain, sore throat, difficulty swallowing, dizziness. RESPIRATORY: Denies dyspnea, cough, wheezing, hemoptysis, sputum. CARDIOVASCULAR: See HPI GASTROINTESTINAL: See HPI : Denies dysuria, frequency, incontinence, hematuria, urinary retention. MUSCULOSKELETAL: denies weakness, joint pain, or bony pain SKIN: Denies rash, skin lesions, or other NEUROLOGIC: Denies weakness, headache, numbness, change in speech, confusion, seizures, incoordination. PSYCHIATRIC: No concerning psychosocial issues. 12 point review of systems is negative except for those stated above Patient History Medical History Acne Advanced directive placed in chart this admission Afib EDUARDO (acute kidney injury) Chicken pox Chronic back pain Coronary artery disease (~2016) Diastolic heart failure (~2016) Glaucoma (~1997) Gout (~1999) Graves disease (~1999) History of kidney cancer Kidney stones Measles Mumps Osteoarthritis (~2014) Peroneal DVT (deep venous thrombosis) Pulmonary embolism Rubella Screening for lipid disorders Thyroid cancer Surgical History H/O thyroidectomy History of nephrectomy, right (~2004) Hx of Achilles tendon repair Family History Father Stroke Mother Stroke Sister Cancer Social History Smoking Status: Former smoker Smoking Status: Former smoker alcohol intake frequency: 0-2 drinks per day Substance Use Type: does not use Exam Narrative Exam Narrative: GENERAL: [77] year old patient appears stated age. Well-developed patient, in mild distress. GCS 15 HEAD: Atraumatic. Normocephalic. EYES: Pupils equal round and reactive. Extraocular motions intact. No scleral icterus. No injection or drainage. ENT: Nose without bleeding, purulent drainage. Throat without erythema, tonsillar hypertrophy or exudate. Airway patent. NECK: Trachea midline. Non tender CARDIOVASCULAR: Regular rate and rhythm without murmurs, gallops, or rubs. No obviously reproducible chest pain on palpation, no contusion or abrasions RESPIRATORY: Clear to auscultation. Breath sounds equal bilaterally. No wheezes, rales, or rhonchi. GASTROINTESTINAL: Abdomen soft, non-tender, nondistended. EXTREMITIES: No edema or joint tenderness. BACK: Nontender without deformity or crepitance. No flank tenderness. NEURO: AOx3. SKIN: No rash or erythema of visible areas Initial Vital Signs Initial Vital Signs: Vital Signs Pulse Rate 55 L 01/07/23 22:48 Respiratory Rate 18 01/07/23 22:48 Blood Pressure 151/81 H 01/07/23 22:48 Pulse Oximetry 98 01/07/23 22:48 Oxygen Delivery Method Room Air 01/07/23 22:48 Course Orders Ordered: Discontinued Medications Hydrocodone Bitart/Acetaminophen (Hydrocodone/Acet 5/325 Prepack) 1 bottle MISC SEEINSTR ONE Stop: 01/08/23 05:23 Last Admin: 01/08/23 05:31 Dose: 1 bottle Documented By: YUE Aspirin (Aspirin 81 Mg Chew Tab) 324 mg PO NOW ONE Stop: 01/07/23 22:53 Last Admin: 01/07/23 23:50 Dose: Not Given Documented By: YUE Hydromorphone HCl (Hydromorphone 0.5 Mg Inj) 0.5 mg IV NOW ONE Stop: 01/08/23 02:01 Last Admin: 01/08/23 02:07 Dose: 0.5 mg Documented By: YUE Hydromorphone HCl (Hydromorphone 0.5 Mg Inj) 0.5 mg IV NOW ONE Stop: 01/08/23 05:23 Last Admin: 01/08/23 05:31 Dose: 0.5 mg Documented By: YUE Sodium Chloride (Normal Saline 0.9%) 1,000 mls @ 150 mls/hr IV CONT IZABELLA Last Infusion: 01/08/23 05:39 Dose: 0 mls/hr Documented By: Admin: 01/08/23 00:33 Dose: 150 mls/hr Documented By: ORALIA Ondansetron HCl (Ondansetron 4 Mg/2 Ml Inj) 4 mg IV NOW ONE Stop: 01/08/23 02:34 Last Admin: 01/08/23 02:38 Dose: 4 mg Documented By: YUE Vital Signs Vital signs: Vital Signs - 8 hr 01/07/23 22:48 01/07/23 23:15 Temperature 97.7 F Pulse Rate 55 L Respiratory Rate 18 Blood Pressure 151/81 H Pulse Oximetry 98 Oxygen Delivery Method Room Air MDM - Chest Pain Lab Data 01/07/23 23:10 01/07/23 23:10 Labs: Lab Results 01/07/23 01/07/23 01/08/23 Range/Units 23:10 23:10 02:20 WBC 6.9 (4.5-11.0) X10^3/uL RBC 3.43 L (4.5-5.9) X10^6/uL Hgb 11.5 L (13.5-17.5) g/dL Hct 33.2 L (41-53) % MCV 96.7 (80-100) fL MCH 33.5 (26-34) PG MCHC 34.7 (30-36) % RDW 15.6 H (11.6-14.8) % Plt Count 183 (150-400) X10^3/uL Neut % (Auto) 59.6 (50-75) % Lymph % (Auto) 27.8 (25-40) % [place] % (Auto) 7.4 (3-14) % Eos % (Auto) 3.9 (2-4) % Baso % (Auto) 1.3 (0-2) % Neut # (Auto) 4100 (8803-1253) /uL Lymph # (Auto) 1900 (4052-6426) /uL [place] # (Auto) 500 (0-900) /uL Eos # (Auto) 300 (0-450) /uL Baso # (Auto) 100 (0-100) /uL Sodium 135 L (137-145) mmol/L Potassium 4.2 (3.4-5.1) mmol/L Chloride 107 (98-107) mmol/L Carbon Dioxide 22 (22-32) mmol/L BUN 24 H (9-20) mg/dL Creatinine 1.81 H (0.66-1.25) mg/dL Estimated GFR 38 L (>60) mL/min BUN/Creatinine Ratio 13.3 (6-22) Glucose 144 H (80-110) mg/dL Calcium 9.2 (8.4-10.2) mg/dL Total Bilirubin 0.7 (0.2-1.3) mg/dL AST 40 (17-59) IU/L ALT 40 (<50) IU/L Alkaline Phosphatase 105 (38-126) U/L Total Creatine Kinase 215 H (55-170) U/L Troponin I < 0.012 (0.01-0.034) ng/mL NT-Pro-B Natriuret Pep 222 (<450) pg/mL Total Protein 7.1 (6.3-8.2) g/dL Albumin 4.0 (3.5-5.0) g/dL Globulin 3.1 (1.7-4.1) g/dL Albumin/Globulin Ratio 1.3 (1.0-2.8) Lipase 320 H (23-300) U/L Ur Bilirubin Confirm Negative (Negative) Urine RBC None seen (0-5/HPF) Urine WBC 1-5/hpf (0-5/HPF) Ur Squamous Epith Cells 1-5 /hpf (0-5/HPF) Ur Transition Epith Cell 0-1/hpf (0-5/HPF) Urine Bacteria Few (2-10) H (None) Hyaline Casts 0-1/lpf (None) Urine Mucus 1+ H (Negative) Urine Dip Bedside Urine Glucose Negative Bedside Urine Bilirubin + 1 Bedside Urine Ketone +/- 5 Urine Specific [facility] 1.030 Bedside Urine Occult Blood - Negative Bedside Urine pH 5.5 Bedside Urine Protein +++ 300 Bedside Urine Urobilinogen - Negative Bedside Urine Nitrite - Negative Bedside Urine Leukocytes - Negative Esterase MDM Narrative Medical decision making narrative: CC: 77-year-old male with injuries from fall Complicating co-morbidities: Age, anticoagulation, hypertension Data collected from: Patient Medical records reviewed: Prior notes reviewed in our EMR Differential considered, but not limited to: Rib fracture versus pulmonary contusion versus sternal fracture versus abdominal strain versus abdominal wall contusion versus intra-abdominal hemorrhage versus other Exam documented above, pertinent findings include: Heart rate is regular, lungs clear, no reproducible anterior chest pain, abdomen is soft with some generalized lower abdominal tenderness Lab Test results independently reviewed as above. Pertinent findings: No leukocytosis or left shift, no anemia, primary electrolytes within normal, creatinine 1.81, improved for him Independently reviewed EKG as above Imaging studies independently reviewed: CT Chest / Abd/ Pelvis notes no fracture or trauma. Small pericardial effusion Treatments: dilaudid, zofran, fluids Re-evaluations: pain well controlled Discussion: Patient with anterior chest pain in lower abdominal pain after a ground level fall earlier in the week. Patient is anticoagulated, activated as a modified trauma. History and physical exam are very reassuring, vital signs stable, no significant lab abnormalities and imaging notes no significant traumatic injuries. Is found to have what is likely a incidental finding of a s mall pericardial effusion. Patient has no shortness of breath, near-syncope unexplained fatigue or deep chest pain, only that which is reproducible anteriorly. He is encouraged to follow closely with his primary care provider. Return precautions including but not limited to worsening pain, shortness of breath, syncope or near some pinky as well as other concerning symptoms Disposition: see below, along with detailed discharge instructions that have been reviewed with patient as well as indications for ED re-evaluation and additional outpatient follow up Discharge Plan Departure Patient Disposition: Home Clinical Impression: Abdominal pain, Acute chest wall pain Instructions: DI for Chest Pain Activity Restrictions/Additional Instructions: *You have been diagnosed with [minor injuries from fall] *What to do: *Please continue to take your regular medications as directed. [ ] New medication prescriptions sent to your pharmacy: [ ] [ ] New medication written as a paper prescription [ ] No new medications given *Please follow up with your primary care provider in 2-3 days, call for an appointment. Let them know you were seen in the Emergency Department and that we ask that you be seen in follow up. We will electronically transmit a record of today's note if your PCP is in our system *If you do not have a primary care provider please contact [facility] Resource line at [phone]. They will ask some questions about your medical history and help get you set up with a doctor in the community. *Return to Emergency Department if you should have any new, worsening or concerning symptoms, such as [fever greater than 101 F, shaking chills, worsening pain, persistent vomiting or other bothersome symptoms] Prescriptions: New hydrocodone-acetaminophen 5-325 mg tablet 1 tab PO Q4-6H PRN (Reason: pain) Qty: 10 0RF No Action levothyroxine 200 mcg tablet 200 mcg PO QPM Qty: 30 0RF dulaglutide 0.75 mg/0.5 mL pen injector 3 mg SUBCUT QWEEK Qty: 2 1RF Rx Instructions: Inject weekly for 4 weeks and then increase to 3 mg allopurinol 100 mg tablet 100 mg PO QPM Qty: 90 3RF amlodipine 5 mg tablet 5 mg PO QPM Qty: 90 3RF omeprazole 20 mg capsule,delayed release(DR/EC) 20 mg PO DAILY Qty: 90 1RF Rx Instructions: TAKE ONE CAPSULE BY MOUTH EVERY MORNING BEFORE BREAKFAST tramadol 50 mg tablet 50 mg PO Q8H PRN (Reason: pain) Qty: 84 0RF Rx Instructions: Must last 28 days. Release date 11/23/22 gabapentin 300 mg capsule See Rx Instructions PO DAILY Qty: 240 1RF Rx Instructions: Take 4 tablets 1200 mg twice daily aspirin [Adult Low Dose Aspirin] 81 mg tablet,delayed release (DR/EC) 81 mg PO QAM doxycycline hyclate 100 mg tablet 100 mg PO BID Qty: 20 0RF Xarelto 20 mg tablet 20 mg PO QPM Rx Instructions: must administer with evening meal duloxetine 30 mg capsule,delayed release(DR/EC) 30 mg PO BID furosemide 20 mg tablet 20 mg PO QPM latanoprost 0.005 % drops 1 drp EYE-BOTH QPM trazodone 50 mg tablet 50 mg PO BEDTIME PRN (Reason: insomnia) Qty: 60 0RF Rx Instructions: Take one to two tablets before bed for insomnia rosuvastatin [Crestor] 40 mg tablet 40 mg PO DAILY Qty: 90 3RF ezetimibe [Zetia] 10 mg tablet 10 mg PO DAILY Qty: 90 3RF losartan 100 mg tablet 100 mg PO DAILY Qty: 90 3RF Referrals: Siva Mcmillan MD [Primary Care Provider] - Stand Alone Forms: Patient Portal/API
--- NOTE | 2023-01-08 01:37 | DI.CT.S_ITS ---
PROCEDURE: CT CHEST ABD PEL W CON INDICATIONS: chest pain, abdominal pain, eliquis, trauma TECHNIQUE: After the administration of intravenous contrast, 5 mm thick sections acquired from the lung apices to the symphysis. 2.5 mm thick coronal and sagittal reformats were acquired. Additional 7 mm thick coronal maximum intensity projection (MIP) reformats acquired through the lungs. For radiation dose reduction, the following was used: automated exposure control, adjustment of mA and/or kV according to patient size. COMPARISON: None. FINDINGS: Chest: Cardiovascular: Heart size is normal. No evidence of pulmonary embolism, aortic aneurysm or dissection. Aortic valve replacement. Smell pericardial effusion. Dense coronary artery vascular calcification Lungs and pleural spaces: Small right pleural effusion with platelike atelectasis. Lymph nodes: No mediastinal, hilar or axillary adenopathy. Mediastinum: Unremarkable. No hiatal hernia. Thyroid within normal limits. Chest Wall and Bones: Unremarkable. No acute fracture. Abdomen and Pelvis: Liver: Normal in size and attenuation. No contour deformity present. Biliary system: Calcified stones noted in the lumen of the gallbladder. No pericholecystic inflammatory change. No intra or extrahepatic bile duct dilation. Pancreas: Unremarkable without mass or inflammation evident. Spleen: Normal in size and density. Adrenals: Normal morphology and density. Reproductive system: Unremarkable as visualized. Urinary system: Right nephrectomy. Urinary bladder unremarkable. Left kidney unremarkable Gastrointestinal system: The bowel is unremarkable with no evidence of bowel obstruction or inflammation. The stomach appears unremarkable. Multiple diverticula arise from the sigmoid colon without evidence of diverticulitis. Appendix: Normal appendix identified. No evidence of appendicitis. Lymph nodes: No mesenteric or retroperitoneal adenopathy. Peritoneal spaces: No free air. No free fluid. Vasculature: Aortic atherosclerotic vascular calcification noted without evidence of aneurysm. In auto text degenerative disc disease Abdominal wall: Abdominal wall intact without evidence of ventral or inguinal hernias. Musculoskeletal: Normal bone mineralization. No acute fractures. IMPRESSION: 1. Small pericardial effusion and right pleural effusion associated with platelike atelectasis. 2. Chronic findings include cholelithiasis, diverticulosis, right nephrectomy, dense coronary artery vascular calcification and aortic valve replacement. Note: Final report is concordant with preliminary interpretation by Letsgofordinner Approved by: Zackary Contreras M.D. on 01/08/2023 at 10:32
[2023-01-08] MEDS: HYDROMORPHONE 0.5 MG INJ IV ×2 (02:07→05:31)
[2023-01-08] MEDS: ONDANSETRON 4 MG/2 ML INJ IV (02:38)
[2023-01-08 02:40] LABS: Bacteria Urine Few (2-10); Hyaline Casts Urine 0-1/LPF; Ictotest Urine Negative (Negative); Mucus Urine 1+ (Negative); RBC Urine None Seen (0-5/HPF); Squamous Epithelial Cell Urine 1-5 /HPF (0-5/HPF); Transitional Epi Cells Urine 0-1/HPF (0-5/HPF); WBC Urine 1-5/HPF (0-5/HPF)
[2023-01-08] MEDS: HYDROCODONE/ACET 5/325 PREPACK 1 BOTTLE MISC (05:31)
== END 2023-01-08 06:48 | disposition home or self-care (01) ==
PROVIDERS: Emergency Provider Emergency Medicine; PCP Family Medicine
DX: R10.9 Unspecified abdominal pain (principal); R07.89 Other chest pain
CPT/HCPCS: 36415; 71045; 71260; 74177; 80053; 81003; 81015; 82550; 83690; 83880; 84484; 85025; 87086; 93005; 96361; 96374; 96375; 96376; 99284; J1170; J2405; Q9967

== ENCOUNTER → 2023-01-27 10:42 | Outpatient (CLI) | payer MEDICARE, SELFPAY ==
[2023-01-27 21:43] LABS: Amylase 96 U/L (30-110); Lipase 308 U/L (23-300)
[2023-01-31 14:05] LABS: Interpretation Negative (Negative)
== END ==
PROVIDERS: PCP Family Medicine; Visit Provider Family Medicine
DX: R10.9 Unspecified abdominal pain (principal); R11.2 Nausea with vomiting, unspecified
CPT/HCPCS: 82150; 83013; 83690

== ENCOUNTER → 2023-05-11 10:21 | Outpatient (CLI) | payer MEDICARE, SELFPAY ==
[2023-05-11 19:36] LABS: Add Manual Diff / Slide Review NO; Basophils Absolute Auto 100 /uL (0-100); Basophils Percent Auto 0.7 % (0-2); Eosinophils Absolute Auto 400 /uL (0-450); Eosinophils Percent Auto 4.9 % (2-4); Hematocrit 35.8 % (41-53); Lymphocytes Absolute Auto 1200 /uL (1100-4500); Lymphocytes Percent Auto 15.9 % (25-40); Mean Corpuscular HGB Conc 33.5 % (30-36); Mean Corpuscular Hemoglobin 31.5 PG (26-34); Mean Corpuscular Volume 94.1 fL (80-100); Monocytes Absolute Auto 700 /uL (0-900); Neutrophils Absolute Auto 5000 /uL (1500-7000); Neutrophils Percent Auto 69.5 % (50-75); Platelet Count 176 X10^3/uL (150-400); Red Blood Cell Count 3.81 X10^6/uL (4.5-5.9); Red Cell Distribution Width 14.4 % (11.6-14.8); White Blood Cell Count 7.3 X10^3/uL (4.5-11.0)
[2023-05-11 19:53] LABS: BUN Creatinine Ratio 21.2 (6-22); Blood Urea Nitrogen 31 mg/dL (9-20); Calcium 9.4 mg/dL (8.4-10.2); Carbon Dioxide 24 mmol/L (22-32); Chloride 105 mmol/L (98-107); Estimated Glomerular Filt Rate 49 mL/min (>60); Glucose 191 mg/dL (80-110); HEMOLYSIS < 15 (0-50); Potassium 4.3 mmol/L (3.4-5.1); Sodium 137 mmol/L (137-145)
[2023-05-11 19:58] LABS: Hemoglobin A1C% w Est Avg Glu 6.4 % (4.0-6.0)
== END ==
PROVIDERS: PCP Family Medicine; Visit Provider Orthopaedic Surgery Orthopaedic Surgery of the Spine
DX: Z01.812 Encounter for preprocedural laboratory examination (principal); R73.9 Hyperglycemia, unspecified
CPT/HCPCS: 80048; 83036; 85025

== ENCOUNTER → 2023-05-19 14:30 | Outpatient (CLI) | payer MEDICARE, SELFPAY | PROVIDERS: PCP Family Medicine; Visit Provider Family Medicine | DX: R10.9 Unspecified abdominal pain (principal) | CPT/HCPCS: 87086 ==

== ENCOUNTER 2023-08-08 06:15 | Day surgery (SDC) | payer OTHER, SELFPAY ==
[2023-08-02 12:35] VITALS: BMI 33.3
[2023-08-08 06:46] VITALS: BMI 33.3
[2023-08-08 07:01] VITALS: BP 171/81; PULSE 63; RESP 18; TEMP 37.1; O2SAT 97
[2023-08-08] MEDS: ACETAMINOPHEN 325 MG TABLET 975 MG PO (07:11)
[2023-08-08] MEDS: LACTATED RINGERS 1,000 ML 42 ML IV ×2 (07:11→09:00)
--- NOTE | 2023-08-08 07:47 | PM.PREOP ---
Pre-operative Note Interval Note History & Physical reviewed/Exam performed by Physician: Yes Changes to H&P: No
[2023-08-08] MEDS: CEFAZOLIN 2 GM/100 ML PREMIX 100 ML IV (08:25)
--- NOTE | 2023-08-08 08:35 | SUR.OPER ---
Prone on spine table, head in foam head support, padded chest and pelvic supports, gel pad at knees, lower legs supported by pillows; nipples, genitalia and toes free of pressure, arms secured on foam padded arm boards at <90 degrees abduction. Tape over blanket at thigh secured to table.
[2023-08-08] MEDS: BUPIVACAINE 0.25% (PF) 30 ML, EPINEPHrine 0.15 MG INJ (08:41)
--- NOTE | 2023-08-08 08:43 | DI.RAD.S_ITS ---
PROCEDURE: XR LUMBAR SPINE 2-3V INDICATIONS: L2-3 MICRODISCECTOMY TECHNIQUE: 2 intraoperative fluoroscopic images COMPARISON: None. FINDINGS: Two intraoperative fluoroscopic images of L2-3 microdiscectomy. Please see operative report for details. IMPRESSION: Two intraoperative fluoroscopic images of L2-3 microdiscectomy. Please see operative report for details. Dictated by: Yuri Barrett M.D. on 08/08/2023 at 18:23 Approved by: Yuri Barrett M.D. on 08/08/2023 at 18:24
--- NOTE | 2023-08-08 09:34 | P.OP_ITS ---
Operative Date/Time/Diagnoses Date of procedure: 08/08/23 Time of procedure: 08:15 Pre-op diagnosis: 1. L2-3 spinal stenosis 2. 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 L2-3 left hemilaminectomy with microdiscectomy 2. Utilization of microsurgical technique and operating microscope Same procedure as scheduled: Yes Indications: Patient has been having chronic back pain and worsening lumbar radiculopathy. Patient was found to have a L2 through 3 disc extrusion with moderate severe central and severe left lateral recess stenosis. Patient failed multiple conservative management with worsening pain weakness and numbness in his lower extremity. Patient has been having difficulty performing activity of daily living. After discussing risks benefits of treatment options, patient elected proceed with surgery. Surgeon: Claudia Martinez Big Data Software Engineer: Adore Shukla Click Yes if Unassisted: No Anesthesia Type: General Operative Notes Closure Type: primary Specimen(s): none sent Estimated Blood Loss (mL): 5 Blood products transfused: none Procedure in detail: Patient was seen in the preoperative area. Risks and benefits of the surgery was discussed with the patient. Informed consent was obtained from the patient and placed in the chart. Surgical site was marked. Patient was taken to the operative room. General anesthesia was administered. Prophylactic antibiotic was given to the patient less than 30 min before the incision was made. Patient was placed into a prone position on the Jay table. Patient's back was then prepped and draped in the sterile fashion. Time-out was performed at this time. Using AP and lateral C-arm imaging the interval between L2-3 was identified and marked on patient's back. A 1 inch incision 1 in from midline was made on the left side. The fascia was incised in line with skin incision. Globus MARS retractors was placed inside the incision and docked onto the L2 lamina. Using microsurgical technique and operating microscope, a L2 left hemilaminectomy was performed using a Kerrison rongeur. Liagamentum flavum was resected at the site of the hemilaminectomy. The disc space at L2-3 was identified. Bilateral lateral recess the decompression was performed by undercutting bilateral facets and removing ligamentum flavum from both sides of L2-3 level. Significant resection of left L2-3 facet was required to fully decompress the L2-3 left lateral recess. There was no gross instability after decompression was completed. Microdiscectomy was performed by incising the annulus with #11 blade. Microcurettes and pituitary was used to removed herniated disc fragments of disc from the epidural space. Large disc extrusion was identified which was significantly adhered to the dura and the surrounding soft tissue and the posterior aspect of the vertebral bodies of L2 and L3. Micro curettes and Kerrison rongeur was used to free up and remove the disc fragment from the epidural space in a piecemeal fashion. After the microdiskectomy was completed, the area medial lateral superior and inferior to the area of the microdiskectomy was inspected and explored using a micro curette. No other impinging structure was identified. The wound was then irrigated with sterile normal saline. 40 mg Depo-Medrol was placed into the epidural space. The deep fascia was closed with 1-0 Vicryl. The subcutaneous tissue was closed with 2-0 Vicryl. The skin was closed with 4-0 Monocryl. Patient tolerated the procedure well. There were no complications. Patient was transferred recovery room in stable condition. The Operation could not have been safely performed without compromising the technical result or length of the procedure, without the assistance of a skilled surgical training specialist. The surgical training specialist was medically necessary for proper positioning, retraction and manipulation of instruments, proper exposure, surgical preparation, and manipulation of tissue. Complications: none Post-operative Condition: stable Disposition: PACU Plan for aftercare: Discharge to home
[2023-08-08 09:43] VITALS: BP 166/70; PULSE 56; RESP 12; TEMP 36.8; O2SAT 95
[2023-08-08 09:48] VITALS: BP 150/63; PULSE 58; RESP 12; O2SAT 95
[2023-08-08 09:53] VITALS: BP 150/63; PULSE 58; RESP 11; O2SAT 97
[2023-08-08 10:00] VITALS: BP 145/62; PULSE 57; RESP 12; TEMP 36.6; O2SAT 98
[2023-08-08] MEDS: OXYCODONE IR 5 MG TABLET PO (10:21)
[2023-08-08 10:30] VITALS: BP 148/78; PULSE 64; RESP 14; TEMP 36.1; O2SAT 97
== END 2023-08-08 10:39 | disposition home or self-care (01) ==
PROVIDERS: PCP Family Medicine; Referring Provider Orthopaedic Surgery Orthopaedic Surgery of the Spine; Visit Provider Orthopaedic Surgery Orthopaedic Surgery of the Spine
PROC: (CPT 63047; principal; 2023-08-08 07:45)
DX: M48.062 Spinal stenosis, lumbar region with neurogenic claudication (principal); M51.16 Intervertebral disc disorders with radiculopathy, lumbar region
CPT/HCPCS: 63047; 72100; 76000; 82962; J0171; J0690; J1100; J2405; J2704; J2919; J3010; J3490

== ENCOUNTER → 2023-11-21 11:22 | Outpatient (CLI) | payer MEDICARE, SELFPAY ==
[2023-11-21 19:37] LABS: Add Manual Diff / Slide Review NO; Basophils Absolute Auto 100 /uL (0-100); Basophils Percent Auto 1.3 % (0-2); Eosinophils Absolute Auto 300 /uL (0-450); Eosinophils Percent Auto 4.7 % (2-4); Hematocrit 35.9 % (41-53); Hemoglobin 12.3 g/dL (13.5-17.5); Hemoglobin A1C% w Est Avg Glu 6.4 % (4.0-6.0); Lymphocytes Absolute Auto 1500 /uL (1100-4500); Lymphocytes Percent Auto 20.2 % (25-40); Mean Corpuscular HGB Conc 34.2 % (30-36); Mean Corpuscular Hemoglobin 31.9 PG (26-34); Mean Corpuscular Volume 93.3 fL (80-100); Monocytes Absolute Auto 600 /uL (0-900); Monocytes Percent Auto 7.7 % (3-14); Neutrophils Absolute Auto 4800 /uL (1500-7000); Neutrophils Percent Auto 66.1 % (50-75); Platelet Count 185 X10^3/uL (150-400); Red Blood Cell Count 3.85 X10^6/uL (4.5-5.9); Red Cell Distribution Width 14.9 % (11.6-14.8); White Blood Cell Count 7.3 X10^3/uL (4.5-11.0)
[2023-11-21 19:39] LABS: Alanine Aminotransferase 13 IU/L (<50); Albumin 3.6 g/dL (3.5-5.0); Albumin Globulin Ratio 1.2 (1.0-2.8); Alkaline Phosphatase 98 U/L (38-126); Aspartate Aminotransferase 18 IU/L (17-59); BUN Creatinine Ratio 22.8 (6-22); Bilirubin Total 0.7 mg/dL (0.2-1.3); Blood Urea Nitrogen 47 mg/dL (9-20); Calcium 9.1 mg/dL (8.4-10.2); Carbon Dioxide 20 mmol/L (22-32); Chloride 113 mmol/L (98-107); Cholesterol 284 mg/dL (140-199); Estimated Glomerular Filt Rate 32 mL/min (>60); Glucose 117 mg/dL (80-110); HDL Cholesterol 36 mg/dL (40-60); HEMOLYSIS < 15 (0-50); LDL Cholesterol Calculated 216 mg/dL (<100); Lipase 67 U/L (23-300); Sodium 137 mmol/L (137-145); Total Protein 6.6 g/dL (6.3-8.2); Triglycerides 159 mg/dL (35-150)
[2023-11-21 19:43] LABS: Potassium 5.4 mmol/L (3.4-5.1)
[2023-11-21 19:54] LABS: Free T3, Triiodothyronine Free 2.22 pg/mL (2.77-5.27); Free T4, Direct Thyroxine 0.77 ng/dL (0.78-2.19)
[2023-11-21 20:08] LABS: Thyroid Stimulating Hormone 10.1 uIU/mL (0.47-4.68)
== END ==
PROVIDERS: PCP Family Medicine; Visit Provider Family Medicine
DX: R80.1 Persistent proteinuria, unspecified (principal); E11.8 Type 2 diabetes mellitus with unspecified complications; N18.31 Chronic kidney disease, stage 3a; E78.2 Mixed hyperlipidemia; D64.9 Anemia, unspecified; I10 Essential (primary) hypertension; E11.9 Type 2 diabetes mellitus without complications; N18.9 Chronic kidney disease, unspecified
CPT/HCPCS: 80053; 80061; 82043; 82570; 83036; 83690; 84439; 84443; 84481; 85025

== ENCOUNTER → 2024-05-24 09:29 | Outpatient (CLI) | payer MEDICARE, SELFPAY ==
[2024-05-24 20:06] LABS: Add Manual Diff / Slide Review NO; Basophils Absolute Auto 100 /uL (0-100); Basophils Percent Auto 1.3 % (0-2); Eosinophils Absolute Auto 400 /uL (0-450); Eosinophils Percent Auto 4.5 % (2-4); Hemoglobin 13.2 g/dL (13.5-17.5); Lymphocytes Absolute Auto 1900 /uL (1100-4500); Lymphocytes Percent Auto 22.6 % (25-40); Mean Corpuscular HGB Conc 33.9 % (30-36); Mean Corpuscular Hemoglobin 31.8 PG (26-34); Mean Corpuscular Volume 93.8 fL (80-100); Monocytes Absolute Auto 600 /uL (0-900); Monocytes Percent Auto 6.8 % (3-14); Neutrophils Absolute Auto 5300 /uL (1500-7000); Neutrophils Percent Auto 64.8 % (50-75); Platelet Count 207 X10^3/uL (150-400); Red Blood Cell Count 4.16 X10^6/uL (4.5-5.9); Red Cell Distribution Width 14.2 % (11.6-14.8); White Blood Cell Count 8.2 X10^3/uL (4.5-11.0)
[2024-05-24 20:13] LABS: BUN Creatinine Ratio 16.4 (6-22); Blood Urea Nitrogen 28 mg/dL (9-20); Calcium 9.2 mg/dL (8.4-10.2); Carbon Dioxide 20 mmol/L (22-32); Chloride 112 mmol/L (98-107); Cholesterol 140 mg/dL (140-199); Estimated Glomerular Filt Rate 40 mL/min (>60); Glucose 133 mg/dL (80-110); HDL Cholesterol 48 mg/dL (40-60); HEMOLYSIS < 15 (0-50); LDL Cholesterol Calculated 71 mg/dL (<100); Potassium 4.5 mmol/L (3.4-5.1); Sodium 135 mmol/L (137-145); Triglycerides 106 mg/dL (35-150)
== END ==
PROVIDERS: PCP Family Medicine; Visit Provider Family Medicine
DX: D64.9 Anemia, unspecified (principal); I25.10 Atherosclerotic heart disease of native coronary artery without angina pectoris; E05.00 Thyrotoxicosis with diffuse goiter without thyrotoxic crisis or storm; E78.2 Mixed hyperlipidemia; R80.9 Proteinuria, unspecified; I13.0 Hypertensive heart and chronic kidney disease with heart failure and stage 1 through stage 4 chronic kidney disease, or unspecified chronic kidney disease; N18.4 Chronic kidney disease, stage 4 (severe); I50.30 Unspecified diastolic (congestive) heart failure; E11.22 Type 2 diabetes mellitus with diabetic chronic kidney disease
CPT/HCPCS: 80048; 80061; 83036; 84439; 84443; 85025

== ENCOUNTER → 2024-11-14 09:37 | Outpatient (CLI) | payer MEDICARE, SELFPAY ==
[2024-11-14 19:58] LABS: Add Manual Diff / Slide Review NO; Basophils Absolute Auto 100 /uL (0-100); Basophils Percent Auto 0.8 % (0-2); Eosinophils Absolute Auto 500 /uL (0-450); Eosinophils Percent Auto 4.8 % (2-4); Hematocrit 25.9 % (41-53); Hemoglobin 9.2 g/dL (13.5-17.5); Lymphocytes Absolute Auto 1700 /uL (1100-4500); Lymphocytes Percent Auto 15.5 % (25-40); Mean Corpuscular HGB Conc 35.6 % (30-36); Mean Corpuscular Hemoglobin 32.2 PG (26-34); Mean Corpuscular Volume 90.4 fL (80-100); Monocytes Absolute Auto 700 /uL (0-900); Monocytes Percent Auto 6.7 % (3-14); Neutrophils Absolute Auto 8000 /uL (1500-7000); Neutrophils Percent Auto 72.2 % (50-75); Platelet Count 374 X10^3/uL (150-400); Red Blood Cell Count 2.87 X10^6/uL (4.5-5.9)
[2024-11-14 20:15] LABS: Alanine Aminotransferase 31 IU/L (<50); Albumin 3.1 g/dL (3.5-5.0); Alkaline Phosphatase 123 U/L (38-126); Aspartate Aminotransferase 29 IU/L (17-59); BUN Creatinine Ratio 23.2 (6-22); Bilirubin Total 0.6 mg/dL (0.2-1.3); Blood Urea Nitrogen 46 mg/dL (9-20); Calcium 9.5 mg/dL (8.4-10.2); Carbon Dioxide 16 mmol/L (22-32); Chloride 109 mmol/L (98-107); Cholesterol 166 mg/dL (140-199); Estimated Glomerular Filt Rate 34 mL/min (>60); Glucose 126 mg/dL (70-99); HDL Cholesterol 25 mg/dL (40-60); HEMOLYSIS < 15 (0-50); LDL Cholesterol Calculated 115 mg/dL (<100); Sodium 135 mmol/L (137-145); Total Protein 6.1 g/dL (6.3-8.2); Triglycerides 130 mg/dL (35-150)
[2024-11-14 20:21] LABS: Hemoglobin A1C% w Est Avg Glu 5.4 % (4.0-6.0)
[2024-11-14 20:41] LABS: TSH w/ Reflex to FT4 0.03 uIU/mL (0.47-4.68)
[2024-11-14 21:08] LABS: Free T4, Direct Thyroxine 2.45 ng/dL (0.78-2.19)
== END ==
PROVIDERS: PCP Family Medicine; Visit Provider Family Medicine
DX: E89.0 Postprocedural hypothyroidism (principal); D64.9 Anemia, unspecified; I12.9 Hypertensive chronic kidney disease with stage 1 through stage 4 chronic kidney disease, or unspecified chronic kidney disease; N18.4 Chronic kidney disease, stage 4 (severe); I25.10 Atherosclerotic heart disease of native coronary artery without angina pectoris; E11.8 Type 2 diabetes mellitus with unspecified complications; R80.1 Persistent proteinuria, unspecified; Z79.891 Long term (current) use of opiate analgesic
CPT/HCPCS: 80053; 80061; 83036; 84439; 84443; 85025